=== PATIENT | male | born 1955 | race Hispanic/Latino ===

== ENCOUNTER 2021-10-24 16:10 | Inpatient (IN) | payer BC, MEDICARE ==
[2021-10-24] MEDS ORDERED: cefTRIAXone/NS 2 GM/100 ML 2 GM/100 ML BAG IV ONE (16:50)
[2021-10-24] MEDS ORDERED: SODIUM CHLORIDE 0.9% 1000 ML IV SOLN IV ONE (16:50)
--- NOTE | 2021-10-24 17:27 | XRay Report ---
XR chest 1V ap INDICATION / CLINICAL INFORMATION: weakness COMPARISON: None available. FINDINGS: SUPPORT DEVICES: None. HEART / MEDIASTINUM: No significant abnormality. LUNGS / PLEURA: Left basilar opacities. Costophrenic sulci are sharp. No pneumothorax. ADDITIONAL FINDINGS: Age-indeterminate posterior ninth rib fractures. No significant additional findi ngs. IMPRESSION: 1. Age-indeterminate posterior ninth rib fracture which is not well-visualized. Correlate with histor y and exam. Left basilar opacities favored to be atelectasis and/or scarring. Although airspace disea se could have a similar appearance. Signer Name: Aidan Dewitt MD Signed: 10/24/2021 5:22 PM Workstation Name: [id number]
--- NOTE | 2021-10-24 17:50 | XRay Report ---
Right foot 3 views INDICATION: Right foot pain FINDINGS: Bony destructive changes are seen within the distal aspect of the great toe with diffuse so ft tissue abnormality is well. There is irregularity in the distal aspect of the third toe. Subluxati on at the MTP joints throughout. Diffuse soft tissue swelling throughout the foot. IMPRESSION: 1. Bony destructive change within the distal aspect of the great toe suggesting osteomyelitis with [place] destructive change. There is also bone marrow irregularity in the distal third toe. MRI could be p erformed for further evaluation if indicated. Signer Name: Ole Hansen MD Signed: 10/24/2021 5:46 PM Workstation Name: [id number]
[2021-10-24 19:13] LABS: Hemoglobin 13.5 gm/dl (11.8-15.2); Mean Corpuscular HGB Conc 34 % (32-34); Mean Corpuscular Volume 91 fl (84-94); Platelet Count 276 K/mm3 (140-440); Red Blood Count 4.42 M/mm3 (3.65-5.03); Red Cell Distribution Width 12.6 % (13.2-15.2)
[2021-10-24] MEDS ORDERED: PIPERACILLIN/TAZOBACTAM 3.375 3.375 GM/50 ML BAG IV ONE (19:25)
[2021-10-24] MEDS ORDERED: VANCOMYCIN PHARMACY TO DOSE IV SCH (20:00)
[2021-10-24] MEDS: INSULIN GLARGINE 100 UNITS/ML SUB-Q SCH (20:05)
[2021-10-24] MEDS ORDERED: VANCOMYCIN 1,750 MG in SODIUM CHLORIDE 0.9% 500 ML 500 ML IV ONE (20:15)
[2021-10-24 21:59] LABS: Albumin 2.8 g/dL (3.9-5); Calcium 9.4 mg/dL (8.4-10.2)
[2021-10-24] MEDS: INSULIN LISPRO 100 UNIT/ML SUB-Q SCH (22:15)
[2021-10-24 22:40] LABS: Band Neutrophils # (Manual) 1.2 K/mm3; Basophils % (Manual) 0 % (0.0-1.8); Eosinophils % (Manual) 0 % (0.0-4.3); Myelocytes # (Manual) 0.2 K/mm3; Total Cells Counted 100
[2021-10-24 22:41] LABS: Platelet Estimate Consistent w Auto; RBC Morphology Normal
[2021-10-24] MEDS ORDERED: INSULIN REGULAR, HUMAN 100 UNITS/1 ML IV ONE (23:00)
--- NOTE | 2021-10-24 23:03 | Emergency Department Report ---
ED General Adult HPI - General Chief complaint: Fever Stated complaint: POSS WOUND INFECTION/RT TOE PUI?: No Time Seen by Provider: 10/24/21 16:50 Source: EMS Mode of arrival: Stretcher Limitations: Altered Mental Status, Physical Limitation - History of Present Illness Initial comments: ALTERED MENTAL STATUS, POSSIBLE TOE INFECTION ON RIGHT FOOT, HYPERGLYCEMIA , pt was covered in feces pt injruied his right foor few weeks ago and started getting infected -: Gradual, week(s) Location: lower extremity Radiation: non-radiation Severity scale (0 -10): 3 Quality: aching Consistency: constant Improves with: none - Related Data Allergies Allergy/AdvReac Type Severity Reaction Status Date / Time No Known Allergies Allergy Unverified 10/24/21 16:28 ED Review of Systems ROS: Stated complaint: POSS WOUND INFECTION/RT TOE Other details as noted in HPI Constitutional: denies: chills, fever Eyes: denies: eye pain, eye discharge, vision change ENT: denies: ear pain, throat pain Respiratory: denies: cough, shortness of breath, wheezing Cardiovascular: denies: chest pain, palpitations Endocrine: no symptoms reported Gastrointestinal: denies: abdominal pain, nausea, diarrhea Genitourinary: denies: urgency, dysuria Musculoskeletal: denies: back pain, joint swelling, arthralgia Skin: denies: rash, lesions Neurological: denies: headache, weakness, paresthesias Psychiatric: denies: anxiety, depression Hematological/Lymphatic: denies: easy bleeding, easy bruising ED Past Medical Hx - Past Medical History Hx Hypertension: Yes Hx Diabetes: Yes - Social History Smoking Status: Unknown if ever smoked ED Physical Exam - General Limitations: Altered Mental Status, Physical Limitation General appearance: alert - Head Head exam: Present: atraumatic, normocephalic - Eye Eye exam: Present: normal appearance - ENT ENT exam: Present: mucous membranes moist - Neck Neck exam: Present: normal inspection - Respiratory Respiratory exam: Present: normal lung sounds bilaterally. Absent: respiratory distress - Cardiovascular Cardiovascular Exam: Present: regular rate, normal rhythm. Absent: systolic murmur, diastolic murmur, rubs, gallop - GI/Abdominal GI/Abdominal exam: Present: soft, normal bowel sounds - Rectal Rectal exam: Present: deferred - Extremities Exam Extremities exam: Present: normal inspection - Expanded Lower Extremity Exam Right Foot/Toe exam: Present: tenderness, swelling, ecchymosis, erythema - Back Exam Back exam: Present: normal inspection - Neurological Exam Neurological exam: Present: alert, oriented X3 - Psychiatric Psychiatric exam: Present: normal affect, normal mood - Skin Skin exam: Present: warm, dry, intact, normal color. Absent: rash ED Course Vital Signs 10/24/21 10/24/21 16:24 18:21 Temperature 98.2 F Pulse Rate 110 H Respiratory 18 Rate Blood Pressure 153/76 [Right] O2 Sat by Pulse 98 97 Oximetry ED Medical Decision Making - Lab Data Result diagrams: 10/24/21 17:17 10/24/21 21:03 - Radiology Data Radiology results: report reviewed, image reviewed - Medical Decision Making sepsis work up showed elevated wbc 20 lactric acid , x ray showed osteo abx given cultures Critical care attestation.: If time is entered above; I have spent that time in minutes in the direct care of this critically ill patient, excluding procedure time. ED Disposition Clinical Impression: Hyperglycemia, Osteomyelitis of foot, right, acute, Sepsis Disposition: ADMITTED INPATIENT Is pt being admited?: Yes Does the pt Need Aspirin: No Condition: Stable
[2021-10-25] MEDS ORDERED: ONDANSETRON 4 MG/2 ML INJ IV PRN (00:19)
[2021-10-25] MEDS ORDERED: DEXTROSE 50% IN WATER (25GM) 50 ML SYRINGE IV PRN (00:19)
[2021-10-25] MEDS ORDERED: MAGNESIUM HYDROXIDE (MOM) ORAL LIQD UDC PO PRN (00:19)
[2021-10-25] MEDS ORDERED: MORPHINE 4 MG/1 ML INJ IV PRN (00:19)
[2021-10-25] MEDS ORDERED: MORPHINE 2 MG/1 ML INJ IV PRN (00:19)
--- NOTE | 2021-10-25 00:33 | History and Physical Report ---
History of Present Illness Date of examination: 10/25/21 Date of admission: 10/25/2021 Chief complaint: Right big toe wound Fever History of present illness: 66-year-old male with known history of hypertension and diabetes mellitus presenting to the emergency room today for evaluation of possible infected toe and elevated blood glucose. Patient states he had an injury to the right big toe few weeks ago which started to look infected. He has not seek any medical intervention. He however indicates that he has an upcoming appointment with his podiatristDr. Ireland Patient was said to have been found in feces at home today. He denies any fever or chills, no chest pain or shortness of breath, no nausea vomiting and no abdominal pain. Patient indicates his blood sugar has been elevated at home. Work-up in the emergency room today, labs significant for leukocytosis of 24 sodium 132, BUN of 28 and creatinine 1.6. Glucose was 495. Chest x-ray shows age-indeterminate posterior ninth rib fracture basilar opacities favored to be atelectasis scarring. Although airspace disease may have similar appearance. X-ray of the right foot reveals bony destructive changes within the distal aspect of the great toe suggesting osteomyelitis. There is also bone marrow irregularity in the distal third toe. MRI is recommended for further evaluation if indicated. Patient has been started on empiric IV antibiotics. Past History Past Medical History: diabetes, hypertension Past Surgical History: Other (Partial amputation of left middle toe) Social history: no significant social history Medications and Allergies Allergies Allergy/AdvReac Type Severity Reaction Status Date / Time No Known Allergies Allergy Unverified 10/24/21 16:28 Review of Systems Constitutional: fever, no chills Ears, nose, mouth and throat: no nasal congestion, no sore throat Cardiovascular: no chest pain, no palpitations Respiratory: no cough, no shortness of breath Gastrointestinal: no abdominal pain, no nausea, no vomiting, no diarrhea Genitourinary Male: no dysuria, no hematuria, no flank pain Musculoskeletal: no neck pain, no low back pain Integumentary: no rash, no pruritis Neurological: no headaches, no confusion Psychiatric: no anxiety, no depression Endocrine: no polyphagia, no polydipsia, no polyuria, no nocturia Exam - Constitutional Vitals: Temp Pulse Resp BP Pulse Ox 98.2 F 110 H 18 153/76 97 10/24/21 16:24 10/24/21 16:24 10/24/21 16:24 10/24/21 16:24 10/24/21 18:21 General appearance: Present: no acute distress, well-nourished - EENT Eyes: Present: PERRL, EOM intact. Absent: scleral icterus ENT: hearing intact, clear oral mucosa, dentition normal - Neck Neck: Present: supple, normal ROM - Respiratory Respiratory effort: normal Respiratory: bilateral: CTA - Cardiovascular Rhythm: regular Heart Sounds: Present: S1 & S2. Absent: gallop, systolic murmur, diastolic murmur, rub, click - Extremities Extremities: no ischemia, pulses intact, pulses symmetrical, No edema, normal temperature, Full ROM Extremity abnormal: ulceration (Open wound with surrounding redness on right big toe,), deformity (Deformed right big toe), tenderness (Minimal tenderness on the right foot) Peripheral Pulses: within normal limits - Abdominal General gastrointestinal: Present: soft, non-tender, non-distended, normal bowel sounds. Absent: mass - Integumentary Integumentary: Present: clear, warm, dry, normal turgor. Absent: rash - Musculoskeletal Musculoskeletal: strength equal bilaterally - Psychiatric Psychiatric: appropriate mood/affect, intact judgment & insight, memory intact, cooperative - Neurologic Neurologic: CNII-XII intact, no focal deficits, moves all extremities HEART Score - HEART Score Troponin: Troponin T < 0.010 ng/mL (0.00-0.029) 10/24/21 17:17 Results - Labs CBC & Chem 7: 10/24/21 17:17 10/24/21 21:03 Labs: Abnormal lab results 10/24/21 10/24/21 10/24/21 Range/Units 17:17 17:17 21:03 WBC 20.5 H (4.5-11.0) K/mm3 RDW 12.6 L (13.2-15.2) % Seg Neuts % (Manual) 82.0 H (40.0-70.0) % Lymphocytes % (Manual) 5.0 L (13.4-35.0) % Seg Neutrophils # Man 16.8 H (1.8-7.7) K/mm3 Lymphocytes # (Manual) 1.0 L (1.2-5.4) K/mm3 Monocytes # (Manual) 1.2 H (0.0-0.8) K/mm3 Sodium 132 L (137-145) mmol/L Chloride 97.1 L (98-107) mmol/L Carbon Dioxide 21 L (22-30) mmol/L BUN 28 H (9-20) mg/dL Creatinine 1.6 H (0.8-1.3) mg/dL Glucose 495 H (75-100) mg/dL POC Glucose (70-105) mg/dL Lactic Acid 3.00 H* (0.7-2.0) mmol/L Albumin 2.8 L (3.9-5) g/dL 10/24/21 Range/Units 23:28 WBC (4.5-11.0) K/mm3 RDW (13.2-15.2) % Seg Neuts % (Manual) (40.0-70.0) % Lymphocytes % (Manual) (13.4-35.0) % Seg Neutrophils # Man (1.8-7.7) K/mm3 Lymphocytes # (Manual) (1.2-5.4) K/mm3 Monocytes # (Manual) (0.0-0.8) K/mm3 Sodium (137-145) mmol/L Chloride (98-107) mmol/L Carbon Dioxide (22-30) mmol/L BUN (9-20) mg/dL Creatinine (0.8-1.3) mg/dL Glucose (75-100) mg/dL POC Glucose 435 H (70-105) mg/dL Lactic Acid (0.7-2.0) mmol/L Albumin (3.9-5) g/dL Assessment and Plan Assessment: 1. Right big toe cellulitis/osteomyelitis 2. Hyperglycemia 3. Leukocytosis Plan: 1.Patient admitted and placed on empiric IV antibiotics. 2. Started on IV fluid and analgesic medication. 3.Consult Vascular surgery, ID and Podiatry for evaluation 4.Placed on sliding sclae insulin . Monitor blood glucose. DVT prophylaxis: Subcutaneous heparin CODE STATUS: Full code
[2021-10-25] MEDS: INSULIN LISPRO 100 UNIT/ML SUB-Q SCH ×2 (09:20→17:00)
[2021-10-25 10:18] LABS: BUN/Creatinine Ratio 22; Blood Urea Nitrogen 26 mg/dL (9-20); Calcium 9.2 mg/dL (8.4-10.2); Hemolysis Index 2
[2021-10-25] MEDS ORDERED: VANCOMYCIN 1,250 MG in SODIUM CHLORIDE 0.9% 250ML 250 ML IV SCH (12:00)
[2021-10-25] MEDS: VANCOMYCIN 1,250 MG in SODIUM CHLORIDE 0.9% 250ML 250 ML IV SCH (17:00)
[2021-10-25 17:03] LABS: Bilirubin,Urine NEG (Negative); Blood,Urine MOD (Negative); Color,Urine Yellow (Yellow); Urobilinogen,Urine < 2.0 mg/dL (<2.0)
[2021-10-25 17:08] LABS: Mucus,Urine FEW /HPF
[2021-10-25] MEDS: AMPICILLIN/SULBACTA 3GM/100ML 3 GM/100 ML BAG IV SCH (19:15)
[2021-10-26] MEDS: AMPICILLIN/SULBACTA 3GM/100ML 3 GM/100 ML BAG IV SCH ×3 (04:51→18:00)
[2021-10-26 05:31] LABS: Basophils % (Auto) 0.3 % (0.0-1.8); Eosinophils # (Auto) 0.1 K/mm3 (0.0-0.4); Eosinophils % (Auto) 1.3 % (0.0-4.3); Hematocrit 34.7 % (35.5-45.6); Hemoglobin 11.6 gm/dl (11.8-15.2); Lymphocytes # (Auto) 1.3 K/mm3 (1.2-5.4); Lymphocytes % (Auto) 11.8 % (13.4-35.0); Mean Corpuscular HGB Conc 34 % (32-34); Mean Corpuscular Volume 90 fl (84-94); Monocytes # (Auto) 1.3 K/mm3 (0.0-0.8); Monocytes % (Auto) 11.8 % (0.0-7.3); Platelet Count 217 K/mm3 (140-440); Red Blood Count 3.86 M/mm3 (3.65-5.03); Red Cell Distribution Width 12.6 % (13.2-15.2)
[2021-10-26 05:44] LABS: Alanine Aminotransferase 70 units/L (7-56); Albumin 2.7 g/dL (3.9-5); BUN/Creatinine Ratio 19; Blood Urea Nitrogen 19 mg/dL (9-20); Calcium 9.2 mg/dL (8.4-10.2); Hemolysis Index 2
[2021-10-26] MEDS: SODIUM CHLORIDE 0.9% 1000 ML 1,000 ML IV SCH (08:42)
--- NOTE | 2021-10-26 08:58 | Event Note ---
Date: 10/25/21 Patient seen and evaluated Sepsis Uncontrolled diabetes Patient started on Unasyn and vancomycin Lantus added for nighttime insulin for better control of glucose levels
[2021-10-26] MEDS: INSULIN LISPRO 100 UNIT/ML SUB-Q SCH ×5 (09:49→22:10)
--- NOTE | 2021-10-26 11:05 | Progress Note ---
Assessment and Plan Assessment and plan: 66-year-old male with known history of hypertension and diabetes mellitus presenting to the emergency room today for evaluation of possible infected toe and elevated blood glucose. Patient states he had an injury to the right big toe few weeks ago which started to look infected. He has an upcoming minerva ointment with his podiatristDr. Ireland. Patient was said to have been found in feces at home today. Patient indicated his blood sugar has been elevated at home. Work-up in the emergency room revealed leukocytosis of 24 sodium 132, BUN of 28 and creatinine 1.6. Glucose was 495. Chest x-ray shows age-indeterminate posterior ninth rib fracture basilar opacities favored to be atelectasis scarring. Although airspace disease may have similar appearance. X-ray of the right foot reveals bony destructive changes within the distal aspect of the great toe suggesting osteomyelitis. There is also bone marrow irregularity in the distal third toe. Sepsis. Patient meets criteria given the tachycardia, leukocytosis and diagnosis of osteomyelitis. Right big toe osteomyelitis/cellulitis. Diabetes mellitus type 2, uncontrolled Leukocytosis Hypertension. 10/26/2021. Check MRI of right foot. Await ID consultation. Follow-up blood cultures. Continue IV antibiotics. Continue SSRI and Accu-Cheks. Continue Lantus at bedtime. Check sed rate. History Interval history: No new issues Hospitalist Physical - Constitutional Vitals: Temp Pulse Resp BP Pulse Ox 99.0 F 84 16 121/83 98 10/25/21 20:55 10/26/21 07:57 10/26/21 07:57 10/26/21 07:57 10/26/21 07:57 General appearance: Present: no acute distress, well-nourished - EENT Eyes: Present: PERRL, EOM intact ENT: hearing intact, clear oral mucosa, dentition normal - Neck Neck: Present: supple, normal ROM - Respiratory Respiratory effort: normal Respiratory: bilateral: CTA - Cardiovascular Rhythm: regular Heart Sounds: Present: S1 & S2. Absent: gallop, rub - Extremities Extremities: no ischemia, No edema, Full ROM - Abdominal General gastrointestinal: soft, non-tender, non-distended, normal bowel sounds - Integumentary Integumentary: Present: clear, warm, dry - Neurologic Neurologic: CNII-XII intact, moves all extremities HEART Score - HEART Score Troponin: Troponin T < 0.010 ng/mL (0.00-0.029) 10/24/21 17:17 Results - Labs CBC & Chem 7: 10/26/21 04:50 10/26/21 04:50 Labs: Laboratory Last Values WBC 11.3 K/mm3 (4.5-11.0) H 10/26/21 04:50 RBC 3.86 M/mm3 (3.65-5.03) 10/26/21 04:50 Hgb 11.6 gm/dl (11.8-15.2) L 10/26/21 04:50 Hct 34.7 % (35.5-45.6) L 10/26/21 04:50 MCV 90 fl (84-94) 10/26/21 04:50 MCH 30 pg (28-32) 10/26/21 04:50 MCHC 34 % (32-34) 10/26/21 04:50 RDW 12.6 % (13.2-15.2) L 10/26/21 04:50 Plt Count 217 K/mm3 (140-440) 10/26/21 04:50 Lymph % (Auto) 11.8 % (13.4-35.0) L 10/26/21 04:50 [place] % (Auto) 11.8 % (0.0-7.3) H 10/26/21 04:50 Eos % (Auto) 1.3 % (0.0-4.3) 10/26/21 04:50 Baso % (Auto) 0.3 % (0.0-1.8) 10/26/21 04:50 Lymph # (Auto) 1.3 K/mm3 (1.2-5.4) 10/26/21 04:50 [place] # (Auto) 1.3 K/mm3 (0.0-0.8) H 10/26/21 04:50 Eos # (Auto) 0.1 K/mm3 (0.0-0.4) 10/26/21 04:50 Baso # (Auto) 0.0 K/mm3 (0.0-0.1) 10/26/21 04:50 Add Manual Diff Complete 10/24/21 17:17 Total Counted 100 10/24/21 17:17 Seg Neutrophils % 74.8 % (40.0-70.0) H 10/26/21 04:50 Seg Neuts % (Manual) 82.0 % (40.0-70.0) H 10/24/21 17:17 Band Neutrophils % 6.0 % 10/24/21 17:17 Lymphocytes % (Manual) 5.0 % (13.4-35.0) L 10/24/21 17:17 Reactive Lymphs % (Man) 0 % 10/24/21 17:17 Monocytes % (Manual) 6.0 % (0.0-7.3) 10/24/21 17:17 Eosinophils % (Manual) 0 % (0.0-4.3) 10/24/21 17:17 Basophils % (Manual) 0 % (0.0-1.8) 10/24/21 17:17 Metamyelocytes % 0 % 10/24/21 17:17 Myelocytes % 1.0 % 10/24/21 17:17 Promyelocytes % 0 % 10/24/21 17:17 Blast Cells % 0 % 10/24/21 17:17 Nucleated RBC % Not Reportable 10/24/21 17:17 Seg Neutrophils # 8.5 K/mm3 (1.8-7.7) H 10/26/21 04:50 Seg Neutrophils # Man 16.8 K/mm3 (1.8-7.7) H 10/24/21 17:17 Band Neutrophils # 1.2 K/mm3 10/24/21 17:17 Lymphocytes # (Manual) 1.0 K/mm3 (1.2-5.4) L 10/24/21 17:17 Abs React Lymphs (Man) 0.0 K/mm3 10/24/21 17:17 Monocytes # (Manual) 1.2 K/mm3 (0.0-0.8) H 10/24/21 17:17 Eosinophils # (Manual) 0.0 K/mm3 (0.0-0.4) 10/24/21 17:17 Basophils # (Manual) 0.0 K/mm3 (0.0-0.1) 10/24/21 17:17 Metamyelocytes # 0.0 K/mm3 10/24/21 17:17 Myelocytes # 0.2 K/mm3 10/24/21 17:17 Promyelocytes # 0.0 K/mm3 10/24/21 17:17 Blast Cells # 0.0 K/mm3 10/24/21 17:17 WBC Morphology Not Reportable 10/24/21 17:17 Hypersegmented Neuts Not Reportable 10/24/21 17:17 Hyposegmented Neuts Not Reportable 10/24/21 17:17 Hypogranular Neuts Not Reportable 10/24/21 17:17 Smudge Cells Not Reportable 10/24/21 17:17 Toxic Granulation Not Reportable 10/24/21 17:17 Toxic Vacuolation Not Reportable 10/24/21 17:17 Dohle Bodies Not Reportable 10/24/21 17:17 Pelger-Huet Anomaly Not Reportable 10/24/21 17:17 Edgardo Rods Not Reportable 10/24/21 17:17 Platelet Estimate Consistent w auto 10/24/21 17:17 Clumped Platelets Not Reportable 10/24/21 17:17 Plt Clumps, EDTA Not Reportable 10/24/21 17:17 Large Platelets Not Reportable 10/24/21 17:17 Giant Platelets Not Reportable 10/24/21 17:17 Platelet Satelliting Not Reportable 10/24/21 17:17 Plt Morphology Comment Not Reportable 10/24/21 17:17 RBC Morphology Normal 10/24/21 17:17 Dimorphic RBCs Not Reportable 10/24/21 17:17 Polychromasia Not Reportable 10/24/21 17:17 Hypochromasia Not Reportable 10/24/21 17:17 Poikilocytosis Not Reportable 10/24/21 17:17 Anisocytosis Not Reportable 10/24/21 17:17 Microcytosis Not Reportable 10/24/21 17:17 Macrocytosis Not Reportable 10/24/21 17:17 Spherocytes Not Reportable 10/24/21 17:17 Pappenheimer Bodies Not Reportable 10/24/21 17:17 Sickle Cells Not Reportable 10/24/21 17:17 Target Cells Not Reportable 10/24/21 17:17 Tear Drop Cells Not Reportable 10/24/21 17:17 Ovalocytes Not Reportable 10/24/21 17:17 Helmet Cells Not Reportable 10/24/21 17:17 [place] Bodies Not Reportable 10/24/21 17:17 [place] Rings Not Reportable 10/24/21 17:17 [place] Cells Not Reportable 10/24/21 17:17 Bite Cells Not Reportable 10/24/21 17:17 Crenated Cell Not Reportable 10/24/21 17:17 Elliptocytes Not Reportable 10/24/21 17:17 Acanthocytes (Spur) Not Reportable 10/24/21 17:17 Rouleaux Not Reportable 10/24/21 17:17 Hemoglobin C Crystals Not Reportable 10/24/21 17:17 Schistocytes Not Reportable 10/24/21 17:17 Malaria parasites Not Reportable 10/24/21 17:17 [place] Bodies Not Reportable 10/24/21 17:17 Hem Pathologist Commnt No 10/24/21 17:17 Sodium 133 mmol/L (137-145) L 10/26/21 04:50 Potassium 4.3 mmol/L (3.6-5.0) 10/26/21 04:50 Chloride 96.6 mmol/L (98-107) L 10/26/21 04:50 Carbon Dioxide 26 mmol/L (22-30) 10/26/21 04:50 Anion Gap 15 mmol/L 10/26/21 04:50 BUN 19 mg/dL (9-20) 10/26/21 04:50 Creatinine 1.0 mg/dL (0.8-1.3) 10/26/21 04:50 Estimated GFR > 60 ml/min 10/26/21 04:50 BUN/Creatinine Ratio 19 % 10/26/21 04:50 Glucose 338 mg/dL (75-100) H 10/26/21 04:50 POC Glucose 375 mg/dL (70-105) H 10/26/21 09:26 Lactic Acid 1.50 mmol/L (0.7-2.0) 10/24/21 21:03 Calcium 9.2 mg/dL (8.4-10.2) 10/26/21 04:50 Total Bilirubin 0.30 mg/dL (0.1-1.2) 10/26/21 04:50 AST 112 units/L (5-40) H 10/26/21 04:50 ALT 70 units/L (7-56) H 10/26/21 04:50 Alkaline Phosphatase 66 units/L (35-129) 10/26/21 04:50 Troponin T < 0.010 ng/mL (0.00-0.029) 10/24/21 17:17 Total Protein 6.1 g/dL (6.3-8.2) L 10/26/21 04:50 Albumin 2.7 g/dL (3.9-5) L 10/26/21 04:50 Albumin/Globulin Ratio 0.8 % 10/26/21 04:50 Urine Color Yellow (Yellow) 10/25/21 15:50 Urine Turbidity Slightly-cloudy (Clear) 10/25/21 15:50 Urine pH 5.0 (5.0-7.0) 10/25/21 15:50 Ur Specific [place] 1.021 (1.003-1.030) 10/25/21 15:50 Urine Protein 100 mg/dl mg/dL (Negative) 10/25/21 15:50 Urine Glucose (UA) >=500 mg/dL (Negative) 10/25/21 15:50 Urine Ketones Neg mg/dL (Negative) 10/25/21 15:50 Urine Blood Mod (Negative) 10/25/21 15:50 Urine Nitrite Neg (Negative) 10/25/21 15:50 Urine Bilirubin Neg (Negative) 10/25/21 15:50 Urine Urobilinogen < 2.0 mg/dL (<2.0) 10/25/21 15:50 Ur Leukocyte Esterase Neg (Negative) 10/25/21 15:50 Urine WBC (Auto) 3.0 /HPF (0.0-6.0) 10/25/21 15:50 Urine RBC (Auto) 3.0 /HPF (0.0-6.0) 10/25/21 15:50 U Epithel Cells (Auto) 1.0 /HPF (0-13.0) 10/25/21 15:50 Urine Mucus Few /HPF 10/25/21 15:50 Microbiology: Microbiology 10/24/21 17:17 Peripheral/Venous Blood Culture - Preliminary 10/24/21 17:17 Peripheral/Venous Blood Culture - Preliminary Active Medications - Current Medications Current Medications: Generic Name Dose Route Start Last Admin Trade Name Freq PRN Reason Stop Dose Admin Acetaminophen 650 mg 10/25/21 00:19 Acetaminophen 325 Mg Tab PO Q6H PRN Pain MILD(1-3)/Fever >100.5/ANDRE Dextrose 0 ml 10/25/21 00:19 Dextrose 50% In Water (25gm) 50 Ml Syringe IV Q30MIN PRN Hypoglycemia Protocol Sodium Chloride 1,000 mls @ 150 mls/hr 10/25/21 00:30 10/26/21 08:42 Nacl 0.9% 1000 Ml IV 150 mls/hr DIRECT IAM Administration Vancomycin HCl 1,250 mg/ 275 mls @ 166.667 mls/hr 10/25/21 16:00 10/25/21 17:00 Sodium Chloride IV 166.667 mls/hr Q18H IAM Administration Ampicillin Sodium/Sulbactam Sodium 3 gm in 100 mls @ 100 mls/hr 10/25/21 18:00 10/26/21 04:51 Unasyn/Ns 3 Gm/100 Ml IV 100 mls/hr Q6HR IAM Administration Protocol Insulin Glargine 20 units 10/25/21 20:00 10/24/21 20:05 Insulin Glargine 100 Units/Ml SUB-Q Not Given QHS [facility] Insulin Human Lispro 0 unit 10/25/21 07:30 10/26/21 09:49 Insulin Lispro 100 Unit/Ml SUB-Q 10 unit ACHS IAM Administration Protocol Magnesium Hydroxide 30 ml 10/25/21 00:19 Magnesium Hydroxide (Mom) Oral Liqd Udc PO Q4H PRN Constipation Morphine Sulfate 2 mg 10/25/21 00:19 Morphine 2 Mg/1 Ml Inj IV Q4H PRN Pain, Moderate (4-6) Morphine Sulfate 4 mg 10/25/21 00:19 Morphine 4 Mg/1 Ml Inj IV Q4H PRN Pain , Severe (7-10) Ondansetron HCl 4 mg 10/25/21 00:19 Ondansetron 4 Mg/2 Ml Inj IV Q8H PRN Nausea And Vomiting Sodium Chloride 10 ml 10/25/21 10:00 10/26/21 08:43 Sodium Chloride 0.9% 10 Ml Flush Syringe IV 10 ml BID IAM Administration Sodium Chloride 10 ml 10/25/21 00:19 Sodium Chloride 0.9% 10 Ml Flush Syringe IV PRN PRN LINE FLUSH Nutrition/Malnutrition Assess - Dietary Evaluation Nutrition/Malnutrition Findings: Nutrition Notes Start: 10/25/21 08:28 Freq: Status: Active Protocol: Document 10/25/21 08:28 BHAVYA (Rec: 10/25/21 08:31 BHAVYA [id number]) Nutrition Notes Need for Assessment generated from: MD Order,Education Initial or Follow up Brief Note Other Pertinent Diagnosis (R) great toe wound, hyperglycemia Current Diet Cardiac/Consistent CHO Weight Status Appropriate Subjective/Other Information RD consulted for diet education; pt in ED at this time. Nutrition Intervention Follow-Up By: 10/30/21 Additional Comments F/U: diet education needs
[2021-10-26] MEDS: VANCOMYCIN 1,250 MG in SODIUM CHLORIDE 0.9% 250ML 250 ML IV SCH (13:41)
[2021-10-26] MEDS: INSULIN GLARGINE 100 UNITS/ML SUB-Q SCH ×2 (22:03→22:15)
[2021-10-27] MEDS: AMPICILLIN/SULBACTA 3GM/100ML 3 GM/100 ML BAG IV SCH ×6 (00:08→18:55)
[2021-10-27] MEDS: SODIUM CHLORIDE 0.9% 1000 ML 1,000 ML IV SCH (02:09)
[2021-10-27] MEDS: VANCOMYCIN 1,250 MG in SODIUM CHLORIDE 0.9% 250ML 250 ML IV SCH (03:14)
[2021-10-27 05:04] LABS: Basophils % (Auto) 0.5 % (0.0-1.8); Eosinophils # (Auto) 0.1 K/mm3 (0.0-0.4); Eosinophils % (Auto) 1.7 % (0.0-4.3); Hematocrit 33.5 % (35.5-45.6); Hemoglobin 11.5 gm/dl (11.8-15.2); Lymphocytes # (Auto) 1.4 K/mm3 (1.2-5.4); Lymphocytes % (Auto) 15.7 % (13.4-35.0); Mean Corpuscular HGB Conc 34 % (32-34); Mean Corpuscular Volume 89 fl (84-94); Monocytes % (Auto) 11.4 % (0.0-7.3); Platelet Count 230 K/mm3 (140-440); Red Blood Count 3.78 M/mm3 (3.65-5.03); Red Cell Distribution Width 12.4 % (13.2-15.2)
[2021-10-27 05:22] LABS: BUN/Creatinine Ratio 15; Blood Urea Nitrogen 12 mg/dL (9-20); Calcium 9.1 mg/dL (8.4-10.2); Hemolysis Index 1
[2021-10-27] MEDS: INSULIN LISPRO 100 UNIT/ML SUB-Q SCH ×4 (08:04→22:15)
--- NOTE | 2021-10-27 09:45 | Progress Note ---
Assessment and Plan Assessment and plan: 66-year-old male with known history of hypertension and diabetes mellitus presenting to the emergency room today for evaluation of possible infected toe and elevated blood glucose. Patient states he had an injury to the right big toe few weeks ago which started to look infected. He has an upcoming minerva ointment with his podiatristDr. Ireland. Patient was said to have been found in feces at home today. Patient indicated his blood sugar has been elevated at home. Work-up in the emergency room revealed leukocytosis of 24 sodium 132, BUN of 28 and creatinine 1.6. Glucose was 495. Chest x-ray shows age-indeterminate posterior ninth rib fracture basilar opacities favored to be atelectasis scarring. Although airspace disease may have similar appearance. X-ray of the right foot reveals bony destructive changes within the distal aspect of the great toe suggesting osteomyelitis. There is also bone marrow irregularity in the distal third toe. Sepsis. Patient meets criteria given the tachycardia, leukocytosis and diagnosis of osteomyelitis. Right big toe osteomyelitis/cellulitis. Diabetes mellitus type 2, uncontrolled Leukocytosis Hypertension. 10/26/2021. Check MRI of right foot. Await ID consultation. Follow-up blood cultures. Continue IV antibiotics. Continue SSRI and Accu-Cheks. Continue Lantus at bedtime. Check sed rate. 10/27/2021. Follow-up MRI of the right foot. ID consultation pending. Continue IV antibiotics. Tight glycemic control to promote healing. BG still remains elevated. Increase Lantus insulin. Follow-up sed rate History Interval history: No new issues Hospitalist Physical - Constitutional Vitals: Temp Pulse Resp BP Pulse Ox 97.9 F 70 17 144/81 98 10/27/21 05:40 10/27/21 05:40 10/27/21 05:40 10/27/21 05:40 10/27/21 05:40 General appearance: Present: no acute distress, well-nourished - EENT Eyes: Present: PERRL, EOM intact ENT: hearing intact, clear oral mucosa, dentition normal - Neck Neck: Present: supple, normal ROM - Respiratory Respiratory effort: normal Respiratory: bilateral: CTA - Cardiovascular Rhythm: regular Heart Sounds: Present: S1 & S2. Absent: gallop, rub - Extremities Extremities: no ischemia, No edema, Full ROM - Abdominal General gastrointestinal: soft, non-tender, non-distended, normal bowel sounds - Integumentary Integumentary: Present: clear, warm, dry - Neurologic Neurologic: CNII-XII intact, moves all extremities HEART Score - HEART Score Troponin: Troponin T < 0.010 ng/mL (0.00-0.029) 10/24/21 17:17 Results - Labs CBC & Chem 7: 10/27/21 04:37 10/27/21 04:37 Labs: Laboratory Last Values WBC 8.6 K/mm3 (4.5-11.0) 10/27/21 04:37 RBC 3.78 M/mm3 (3.65-5.03) 10/27/21 04:37 Hgb 11.5 gm/dl (11.8-15.2) L 10/27/21 04:37 Hct 33.5 % (35.5-45.6) L 10/27/21 04:37 MCV 89 fl (84-94) 10/27/21 04:37 MCH 31 pg (28-32) 10/27/21 04:37 MCHC 34 % (32-34) 10/27/21 04:37 RDW 12.4 % (13.2-15.2) L 10/27/21 04:37 Plt Count 230 K/mm3 (140-440) 10/27/21 04:37 Lymph % (Auto) 15.7 % (13.4-35.0) 10/27/21 04:37 [place] % (Auto) 11.4 % (0.0-7.3) H 10/27/21 04:37 Eos % (Auto) 1.7 % (0.0-4.3) 10/27/21 04:37 Baso % (Auto) 0.5 % (0.0-1.8) 10/27/21 04:37 Lymph # (Auto) 1.4 K/mm3 (1.2-5.4) 10/27/21 04:37 [place] # (Auto) 1.0 K/mm3 (0.0-0.8) H 10/27/21 04:37 Eos # (Auto) 0.1 K/mm3 (0.0-0.4) 10/27/21 04:37 Baso # (Auto) 0.0 K/mm3 (0.0-0.1) 10/27/21 04:37 Add Manual Diff Complete 10/24/21 17:17 Total Counted 100 10/24/21 17:17 Seg Neutrophils % 70.7 % (40.0-70.0) H 10/27/21 04:37 Seg Neuts % (Manual) 82.0 % (40.0-70.0) H 10/24/21 17:17 Band Neutrophils % 6.0 % 10/24/21 17:17 Lymphocytes % (Manual) 5.0 % (13.4-35.0) L 10/24/21 17:17 Reactive Lymphs % (Man) 0 % 10/24/21 17:17 Monocytes % (Manual) 6.0 % (0.0-7.3) 10/24/21 17:17 Eosinophils % (Manual) 0 % (0.0-4.3) 10/24/21 17:17 Basophils % (Manual) 0 % (0.0-1.8) 10/24/21 17:17 Metamyelocytes % 0 % 10/24/21 17:17 Myelocytes % 1.0 % 10/24/21 17:17 Promyelocytes % 0 % 10/24/21 17:17 Blast Cells % 0 % 10/24/21 17:17 Nucleated RBC % Not Reportable 10/24/21 17:17 Seg Neutrophils # 6.1 K/mm3 (1.8-7.7) 10/27/21 04:37 Seg Neutrophils # Man 16.8 K/mm3 (1.8-7.7) H 10/24/21 17:17 Band Neutrophils # 1.2 K/mm3 10/24/21 17:17 Lymphocytes # (Manual) 1.0 K/mm3 (1.2-5.4) L 10/24/21 17:17 Abs React Lymphs (Man) 0.0 K/mm3 10/24/21 17:17 Monocytes # (Manual) 1.2 K/mm3 (0.0-0.8) H 10/24/21 17:17 Eosinophils # (Manual) 0.0 K/mm3 (0.0-0.4) 10/24/21 17:17 Basophils # (Manual) 0.0 K/mm3 (0.0-0.1) 10/24/21 17:17 Metamyelocytes # 0.0 K/mm3 10/24/21 17:17 Myelocytes # 0.2 K/mm3 10/24/21 17:17 Promyelocytes # 0.0 K/mm3 10/24/21 17:17 Blast Cells # 0.0 K/mm3 10/24/21 17:17 WBC Morphology Not Reportable 10/24/21 17:17 Hypersegmented Neuts Not Reportable 10/24/21 17:17 Hyposegmented Neuts Not Reportable 10/24/21 17:17 Hypogranular Neuts Not Reportable 10/24/21 17:17 Smudge Cells Not Reportable 10/24/21 17:17 Toxic Granulation Not Reportable 10/24/21 17:17 Toxic Vacuolation Not Reportable 10/24/21 17:17 Dohle Bodies Not Reportable 10/24/21 17:17 Pelger-Huet Anomaly Not Reportable 10/24/21 17:17 Edgardo Rods Not Reportable 10/24/21 17:17 Platelet Estimate Consistent w auto 10/24/21 17:17 Clumped Platelets Not Reportable 10/24/21 17:17 Plt Clumps, EDTA Not Reportable 10/24/21 17:17 Large Platelets Not Reportable 10/24/21 17:17 Giant Platelets Not Reportable 10/24/21 17:17 Platelet Satelliting Not Reportable 10/24/21 17:17 Plt Morphology Comment Not Reportable 10/24/21 17:17 RBC Morphology Normal 10/24/21 17:17 Dimorphic RBCs Not Reportable 10/24/21 17:17 Polychromasia Not Reportable 10/24/21 17:17 Hypochromasia Not Reportable 10/24/21 17:17 Poikilocytosis Not Reportable 10/24/21 17:17 Anisocytosis Not Reportable 10/24/21 17:17 Microcytosis Not Reportable 10/24/21 17:17 Macrocytosis Not Reportable 10/24/21 17:17 Spherocytes Not Reportable 10/24/21 17:17 Pappenheimer Bodies Not Reportable 10/24/21 17:17 Sickle Cells Not Reportable 10/24/21 17:17 Target Cells Not Reportable 10/24/21 17:17 Tear Drop Cells Not Reportable 10/24/21 17:17 Ovalocytes Not Reportable 10/24/21 17:17 Helmet Cells Not Reportable 10/24/21 17:17 [place] Bodies Not Reportable 10/24/21 17:17 Blanco Rings Not Reportable 10/24/21 17:17 [place] Cells Not Reportable 10/24/21 17:17 Bite Cells Not Reportable 10/24/21 17:17 Crenated Cell Not Reportable 10/24/21 17:17 Elliptocytes Not Reportable 10/24/21 17:17 Acanthocytes (Spur) Not Reportable 10/24/21 17:17 Rouleaux Not Reportable 10/24/21 17:17 Hemoglobin C Crystals Not Reportable 10/24/21 17:17 Schistocytes Not Reportable 10/24/21 17:17 Malaria parasites Not Reportable 10/24/21 17:17 ESR 56 mm/Hr (0-20) 10/26/21 04:50 [place] Bodies Not Reportable 10/24/21 17:17 Hem Pathologist Commnt No 10/24/21 17:17 Sodium 139 mmol/L (137-145) 10/27/21 04:37 Potassium 4.2 mmol/L (3.6-5.0) 10/27/21 04:37 Chloride 104.6 mmol/L (98-107) 10/27/21 04:37 Carbon Dioxide 26 mmol/L (22-30) 10/27/21 04:37 Anion Gap 13 mmol/L 10/27/21 04:37 BUN 12 mg/dL (9-20) 10/27/21 04:37 Creatinine 0.8 mg/dL (0.8-1.3) 10/27/21 04:37 Estimated GFR > 60 ml/min 10/27/21 04:37 BUN/Creatinine Ratio 15 % 10/27/21 04:37 Glucose 208 mg/dL (75-100) H 10/27/21 04:37 POC Glucose 183 mg/dL (70-105) H 10/27/21 07:46 Lactic Acid 1.50 mmol/L (0.7-2.0) 10/24/21 21:03 Calcium 9.1 mg/dL (8.4-10.2) 10/27/21 04:37 Total Bilirubin 0.30 mg/dL (0.1-1.2) 10/26/21 04:50 AST 112 units/L (5-40) H 10/26/21 04:50 ALT 70 units/L (7-56) H 10/26/21 04:50 Alkaline Phosphatase 66 units/L (35-129) 10/26/21 04:50 Troponin T < 0.010 ng/mL (0.00-0.029) 10/24/21 17:17 Total Protein 6.1 g/dL (6.3-8.2) L 10/26/21 04:50 Albumin 2.7 g/dL (3.9-5) L 10/26/21 04:50 Albumin/Globulin Ratio 0.8 % 10/26/21 04:50 Urine Color Yellow (Yellow) 10/25/21 15:50 Urine Turbidity Slightly-cloudy (Clear) 10/25/21 15:50 Urine pH 5.0 (5.0-7.0) 10/25/21 15:50 Ur Specific [place] 1.021 (1.003-1.030) 10/25/21 15:50 Urine Protein 100 mg/dl mg/dL (Negative) 10/25/21 15:50 Urine Glucose (UA) >=500 mg/dL (Negative) 10/25/21 15:50 Urine Ketones Neg mg/dL (Negative) 10/25/21 15:50 Urine Blood Mod (Negative) 10/25/21 15:50 Urine Nitrite Neg (Negative) 10/25/21 15:50 Urine Bilirubin Neg (Negative) 10/25/21 15:50 Urine Urobilinogen < 2.0 mg/dL (<2.0) 10/25/21 15:50 Ur Leukocyte Esterase Neg (Negative) 10/25/21 15:50 Urine WBC (Auto) 3.0 /HPF (0.0-6.0) 10/25/21 15:50 Urine RBC (Auto) 3.0 /HPF (0.0-6.0) 10/25/21 15:50 U Epithel Cells (Auto) 1.0 /HPF (0-13.0) 10/25/21 15:50 Urine Mucus Few /HPF 10/25/21 15:50 Gonzalez/IV: Voiding Method Urinal Active Medications - Current Medications Current Medications: Generic Name Dose Route Start Last Admin Trade Name Freq PRN Reason Stop Dose Admin Acetaminophen 650 mg 10/25/21 00:19 Acetaminophen 325 Mg Tab PO Q6H PRN Pain MILD(1-3)/Fever >100.5/ANDRE Dextrose 0 ml 10/25/21 00:19 Dextrose 50% In Water (25gm) 50 Ml Syringe IV Q30MIN PRN Hypoglycemia Protocol Sodium Chloride 1,000 mls @ 150 mls/hr 10/25/21 00:30 10/27/21 02:09 Nacl 0.9% 1000 Ml IV 150 mls/hr DIRECT IAM Administration Vancomycin HCl 1,250 mg/ 275 mls @ 166.667 mls/hr 10/25/21 16:00 10/27/21 03:14 Sodium Chloride IV 166.667 mls/hr Q18H IAM Administration Ampicillin Sodium/Sulbactam Sodium 3 gm in 100 mls @ 100 mls/hr 10/25/21 18:00 10/27/21 00:10 Unasyn/Ns 3 Gm/100 Ml IV 100 mls/hr Q6HR IAM Administration Protocol Insulin Glargine 20 units 10/25/21 20:00 10/26/21 22:15 Insulin Glargine 100 Units/Ml SUB-Q 20 units QHS IAM Administration Insulin Human Lispro 0 unit 10/25/21 07:30 10/26/21 22:10 Insulin Lispro 100 Unit/Ml SUB-Q 6 unit ACHS IAM Administration Protocol Magnesium Hydroxide 30 ml 10/25/21 00:19 Magnesium Hydroxide (Mom) Oral Liqd Udc PO Q4H PRN Constipation Morphine Sulfate 2 mg 10/25/21 00:19 Morphine 2 Mg/1 Ml Inj IV Q4H PRN Pain, Moderate (4-6) Morphine Sulfate 4 mg 10/25/21 00:19 Morphine 4 Mg/1 Ml Inj IV Q4H PRN Pain , Severe (7-10) Ondansetron HCl 4 mg 10/25/21 00:19 Ondansetron 4 Mg/2 Ml Inj IV Q8H PRN Nausea And Vomiting Sodium Chloride 10 ml 10/25/21 10:00 10/26/21 21:38 Sodium Chloride 0.9% 10 Ml Flush Syringe IV 10 ml BID IAM Administration Sodium Chloride 10 ml 10/25/21 00:19 Sodium Chloride 0.9% 10 Ml Flush Syringe IV PRN PRN LINE FLUSH Nutrition/Malnutrition Assess - Dietary Evaluation Nutrition/Malnutrition Findings: Nutrition Notes Start: 10/25/21 08:28 Freq: Status: Active Protocol: Document 10/25/21 08:28 [email or web address] (Rec: 10/25/21 08:31 BHAVYA [id number]) Nutrition Notes Need for Assessment generated from: MD Order,Education Initial or Follow up Brief Note Other Pertinent Diagnosis (R) great toe wound, hyperglycemia Current Diet Cardiac/Consistent CHO Weight Status Appropriate Subjective/Other Information RD consulted for diet education; pt in ED at this time. Nutrition Intervention Follow-Up By: 10/30/21 Additional Comments F/U: diet education needs
--- NOTE | 2021-10-27 11:58 | Consultation ---
History of Present Illness - Reason for Consult Consult date: 10/27/21 R great toe cellulitis, osteomyelitis Requesting physician: LISANDRA MARTINEZ - History of Present Illness The patient is a 66-year-old male with diabetes, hypertension, prior history of toe osteomyelitis requiring IV antibiotics via PICC line, follows regularly with his half sole fitter Dr. Ireland who has performed multiple surgeries on both his feet was admitted to the hospital after he fell at home due to weakness, blood sugars were getting out of control and right foot great toe started to swell up with redness. Upon admission, x-ray showed bony destructive changes concerning for osteomyelitis, hence infectious diseases was consulted. Patient just completed an MRI. Had sepsis on admission with improvement in leukocytosis with empiric antibiotics. Currently on Unasyn and vancomycin. Review of Systems: General: no fevers,chills or rigors HEENT: no new visual disturbance Respiratory: No cough, sputum, hemoptysis or shortness of breath Cardiovascular: No chest pain, syncope Gastrointestinal: No nausea, vomiting or diarrhea Genitourinary: No dysuria or hematuria Musculoskeletal: No new or worsening neck pain or back pain Neurologic: No headaches, seizures Hematologic: No easy bruising or bleeding Endocrine: No night sweats or acute weight loss Skin: negative for rash, jaundice Psychiatric: No suicidal or homicidal ideation Past History Past Medical History: diabetes, hypertension Past Surgical History: Other (Partial amputation of left middle toe) Social history: no significant social history Medications and Allergies Allergies Allergy/AdvReac Type Severity Reaction Status Date / Time No Known Allergies Allergy Unverified 10/24/21 16:28 Home Medications Medication Instructions Recorded Confirmed Last Taken Type Acetaminophen [Tylenol Extra 500 mg PO Q6HR PRN 10/27/21 10/27/21 Unknown History Strength] Apixaban [Eliquis] 5 mg PO BID 10/27/21 10/27/21 Unknown History Insulin Aspart (Nf) [NovoLOG 10 units SQ AC 10/27/21 10/27/21 Unknown History Flexpen] Insulin Glargine,Hum.rec.anlog 36 unit SQ HS 10/27/21 10/27/21 Unknown History [Lantus Solostar] Losartan Potassium 25 mg PO DAILY 10/27/21 10/27/21 Unknown History Metformin HCl [metFORMIN ER 500 mg PO BID 10/27/21 10/27/21 Unknown History Osmotic] Sotalol HCl [Sotalol] 120 mg PO BID 10/27/21 10/27/21 Unknown History Active Meds: Active Medications Acetaminophen (Acetaminophen 325 Mg Tab) 650 mg PO Q6H PRN PRN Reason: Pain MILD(1-3)/Fever >100.5/ANDRE Dextrose (Dextrose 50% In Water (25gm) 50 Ml Syringe) 0 ml IV Q30MIN PRN; Protocol PRN Reason: Hypoglycemia Sodium Chloride (Nacl 0.9% 1000 Ml) 1,000 mls @ 150 mls/hr IV DIRECT IAM Last Admin: 10/27/21 02:09 Dose: 150 mls/hr Vancomycin HCl 1,250 mg/ (Sodium Chloride) 275 mls @ 166.667 mls/hr IV Q18H [facility] Last Admin: 10/27/21 03:14 Dose: 166.667 mls/hr Ampicillin Sodium/Sulbactam Sodium (Unasyn/Ns 3 Gm/100 Ml) 3 gm in 100 mls @ 100 mls/hr IV Q6HR [facility]; Protocol Last Admin: 10/27/21 00:10 Dose: 100 mls/hr Insulin Glargine (Insulin Glargine 100 Units/Ml) 25 units SUB-Q QHS IAM Insulin Human Lispro (Insulin Lispro 100 Unit/Ml) 0 unit SUB-Q ACHS [facility]; Protocol Last Admin: 10/26/21 22:10 Dose: 6 unit Magnesium Hydroxide (Magnesium Hydroxide (Mom) Oral Liqd Udc) 30 ml PO Q4H PRN PRN Reason: Constipation Morphine Sulfate (Morphine 2 Mg/1 Ml Inj) 2 mg IV Q4H PRN PRN Reason: Pain, Moderate (4-6) Morphine Sulfate (Morphine 4 Mg/1 Ml Inj) 4 mg IV Q4H PRN PRN Reason: Pain , Severe (7-10) Ondansetron HCl (Ondansetron 4 Mg/2 Ml Inj) 4 mg IV Q8H PRN PRN Reason: Nausea And Vomiting Sodium Chloride (Sodium Chloride 0.9% 10 Ml Flush Syringe) 10 ml IV BID [facility] Last Admin: 10/26/21 21:38 Dose: 10 ml Sodium Chloride (Sodium Chloride 0.9% 10 Ml Flush Syringe) 10 ml IV PRN PRN PRN Reason: LINE FLUSH Physical Examination - Physical Exam Narrative exam: Physical Exam: Constitutional: Alert, cooperative. No acute distress Head, Ears, Nose: Normocephalic, atraumatic. External ears, nose normal Eyes: Conjunctivae/corneas clear. No icterus. No ptosis. Neck: Supple, no meningeal signs Cardiovascular: S1, S2 + Respiratory: Good air entry, clear to auscultation bilaterally GI: Soft, non-tender; bowel sounds normal. No peritoneal signs Musculoskeletal: Right great toe with significant swelling, erythema. Third toe with evidence of prior surgery Skin: No rash or abscess Hem/Lymphatic: No palpable cervical or supraclavicular nodes. No lymphangitis Psych: Mood ok. Affect normal Neurological: Awake, alert, oriented. No gross abnormality - Constitutional Vitals: Vital Signs Temp Pulse Resp BP Pulse Ox 97.9 F 70 17 144/81 98 10/27/21 05:40 10/27/21 05:40 10/27/21 05:40 10/27/21 05:40 10/27/21 05:40 Temperature -Last 24 Hours Temperature 97.9 F Temperature 97.6 F Temperature 98.5 F Results - Labs CBC & Chem 7: 10/27/21 04:37 10/27/21 04:37 Labs: Abnormal lab results 10/26/21 10/26/21 10/26/21 Range/Units 12:22 17:16 21:40 Hgb (11.8-15.2) gm/dl Hct (35.5-45.6) % RDW (13.2-15.2) % [place] % (Auto) (0.0-7.3) % [place] # (Auto) (0.0-0.8) K/mm3 Seg Neutrophils % (40.0-70.0) % Glucose (75-100) mg/dL POC Glucose 332 H 295 H 282 H (70-105) mg/dL 10/27/21 10/27/21 10/27/21 Range/Units 04:37 04:37 07:46 Hgb 11.5 L (11.8-15.2) gm/dl Hct 33.5 L (35.5-45.6) % RDW 12.4 L (13.2-15.2) % [place] % (Auto) 11.4 H (0.0-7.3) % [place] # (Auto) 1.0 H (0.0-0.8) K/mm3 Seg Neutrophils % 70.7 H (40.0-70.0) % Glucose 208 H (75-100) mg/dL POC Glucose 183 H (70-105) mg/dL 10/27/21 Range/Units 11:49 Hgb (11.8-15.2) gm/dl Hct (35.5-45.6) % RDW (13.2-15.2) % [place] % (Auto) (0.0-7.3) % [place] # (Auto) (0.0-0.8) K/mm3 Seg Neutrophils % (40.0-70.0) % Glucose (75-100) mg/dL POC Glucose 321 H (70-105) mg/dL - Imaging and Cardiology Chest x-ray: report reviewed, image reviewed (no pneumonia) Assessment and Plan Cultures: 10/24/2021 blood culture: GPC, gram variable rods A/P: 66-year-old male with diabetes, hypertension, CAD, prior history of toe osteomyelitis requiring IV antibiotics via PICC line, follows regularly with his half sole fitter Dr. Ireland who has performed multiple surgeries on both his feet was admitted to the hospital after he fell at home due to weakness, blood sugars were getting out of control and right foot great toe started to swell up with redness: #Sepsis, secondary to right great toe cellulitis, underlying osteomyelitis: toe with significant swelling, x-ray with bony destructive change. #GPC bacteremia: Likely due to above #Diabetes mellitus uncontrolled Recs: -Continue empiric Unasyn and vancomycin for now -Follow-up blood cultures -Arterial studies ordered -Follow-up podiatry evaluation -Follow-up MRI -TTE, repeat blood cultures due to bacteremia Hui Ghosh MD, FACP, [facility] ([facility]) O: [phone] F: [phone] C: [phone]
--- NOTE | 2021-10-27 13:23 | Magnetic Resonance Report ---
MRI RIGHT FOOT WITHOUT CONTRAST INDICATION / CLINICAL INFORMATION: right big toe osteo. TECHNIQUE: Multiplanar, multisequence MR images were obtained. COMPARISON: Right foot x-ray 10/24/2021 FINDINGS: BONES: Extensive destruction with abnormal hypointense T1 and hyperintense T2 signal within the first toe distal phalanx. There is mild hyperintense T1 and hyperintense T2 signal within the first toe pr oximal phalanx as well.. No fracture. No osseous lesion. JOINTS: Large effusion first DIP joints . SUBCUTANEOUS SOFT TISSUES: Ulcer along the distal aspect of first toe. Moderate subcutaneous edema wi thin the dorsal aspect of foot and first toe. Loculated soft tissue abscess/fluid collection extends along the dorsal aspect of first toe proximal phalanx 4 3.5 cm in length on sagittal image 20. MUSCLES: No significant abnormality. FLEXOR TENDONS: No significant abnormality. EXTENSOR TENDONS: No significant abnormality. LIGAMENTS: No significant abnormality. ADDITIONAL FINDINGS: None. IMPRESSION: 1. Acute osteomyelitis involving first toe distal and proximal phalanges with septic arthritis of fir st IP joint and loculated abscess along dorsal aspect of first toe metatarsal. 2. Moderate cellulitis Signer Name: Phil Bucio MD Signed: 10/27/2021 1:18 PM Workstation Name: [id number]
--- NOTE | 2021-10-27 17:51 | Vascular Lab Report ---
DUPLEX DOPPLER LOWER EXTREMITY ARTERIAL, BILATERAL INDICATION / CLINICAL INFORMATION: peripheral vascular disease, wounds. TECHNIQUE: Arterial duplex examination of both lower extremities performed using B-mode, color flow a nd spectral Doppler assessment. FINDINGS: RIGHT: Common Femoral Artery: PSV 109 cm/sec. Triphasic waveform. Proximal SFA: PSV 106 cm/sec. Triphasic waveform. Mid SFA: PSV 156 cm/sec. Triphasic waveform. Distal SFA: PSV 119 cm/sec. Triphasic waveform. Popliteal artery: PSV 138 cm/sec. Triphasic waveform. Posterior tibial artery: PSV 142 cm/sec. Monophasic waveform. Dorsalis Pedis Artery: PSV 38 cm/sec. Monophasic waveform. LEFT: Common Femoral Artery: PSV 108 cm/sec. Triphasic waveform. Proximal SFA: PSV 99 cm/sec. Triphasic waveform. Mid SFA: PSV 129 cm/sec. Biphasic waveform. Distal SFA: PSV 89 cm/sec. Biphasic waveform. Popliteal artery: PSV 88 cm/sec. Biphasic waveform. Posterior tibial artery: PSV 124 cm/sec. Biphasic waveform. Dorsalis Pedis Artery: PSV 40 cm/sec. Biphasic waveform. IMPRESSION: 1. Mild atherosclerotic disease is noted. This appears to be most prominent in the runoff vessels. Th ere is monophasic flow at the ankle on the right. Doppler Waveform: - Triphasic is normal. - Biphasic is abnormal if clear transition from triphasic signal along vascular tree. - Monophasic is abnormal. Signer Name: Ayo German MD Signed: 10/27/2021 5:47 PM Workstation Name: [id number]
[2021-10-27] MEDS: INSULIN GLARGINE 100 UNITS/ML SUB-Q SCH (22:15)
[2021-10-28] MEDS: AMPICILLIN/SULBACTA 3GM/100ML 3 GM/100 ML BAG IV SCH ×4 (00:11→18:35)
[2021-10-28] MEDS: VANCOMYCIN 1,250 MG in SODIUM CHLORIDE 0.9% 250ML 250 ML IV SCH ×2 (02:05→18:33)
[2021-10-28] MEDS: SODIUM CHLORIDE 0.9% 1000 ML 1,000 ML IV SCH ×2 (05:14→13:18)
[2021-10-28] MEDS: INSULIN LISPRO 100 UNIT/ML SUB-Q SCH ×4 (09:04→21:30)
--- NOTE | 2021-10-28 11:40 | Progress Note ---
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 Ireland who has performed multiple surgeries on both his feet was admitted to the hospital after he fell at home due to weakness, blood sugars were getting out of control and right foot great toe started to swell up with redness: #Sepsis, secondary to right great toe cellulitis, underlying osteomyelitis: toe with significant swelling, x-ray with bony destructive change. MRI right foot without contrast showed acute osteomyelitis of the first toe distal and proximal phalanges with septic arthritis of the first IP joint and loculated abscess along the dorsal aspect of the first toe metatarsal, moderate cellulitis. #GPC bacteremia: Likely due to above. TTE showed increased echogenicity of the aortic valve annulus. Due to indwelling bioprosthetic valve, recommend TENNILLE. #Peripheral vascular disease: Arterial studies showed mild arthrosclerotic disease as well as monophasic flow at the ankle on the right. #Diabetes mellitus uncontrolled Recs: -Continue empiric Unasyn and vancomycin for now, target vancomycin trough: 10-20 mcg/ml -Follow-up blood cultures -Due to indwelling bioprosthetic valve, recommend TENNILLE -Recommend vascular surgery evaluation -Repeat blood cultures ordered -Follow-up podiatry evaluation d/w Dr. Batres. Hui Ghosh MD, FACP, [facility] ([facility]) O: [phone] F: [phone] C: [phone] Subjective Date of service: 10/28/21 Interval history: No fever. No new complaints. Tolerating abx, no vomiting or rash. Objective - Exam Narrative Exam: Physical Exam: Constitutional: Alert, cooperative. No acute distress Head, Ears, Nose: Normocephalic, atraumatic. External ears, nose normal Eyes: Conjunctivae/corneas clear. No icterus. No ptosis. Neck: Supple, no meningeal signs Cardiovascular: S1, S2 + Respiratory: Good air entry, clear to auscultation bilaterally GI: Soft, non-tender; bowel sounds normal. No peritoneal signs Musculoskeletal: Right great toe with significant swelling, erythema. Third toe with evidence of prior surgery Skin: No rash or abscess Hem/Lymphatic: No palpable cervical or supraclavicular nodes. No lymphangitis Psych: Mood ok. Affect normal Neurological: Awake, alert, oriented. No gross abnormality - Constitutional Vitals: Vital Signs Temp Pulse Resp BP Pulse Ox 98.0 F 68 16 167/92 98 10/28/21 04:35 10/28/21 04:35 10/28/21 04:35 10/28/21 04:35 10/28/21 04:35 Temperature -Last 24 Hours Temperature 98.0 F Temperature 98.0 F - Labs CBC & Chem 7: 10/27/21 04:37 10/27/21 04:37 Labs: Abnormal lab results 10/27/21 10/27/21 10/27/21 Range/Units 11:49 15:57 21:57 POC Glucose 321 H 372 H 216 H (70-105) mg/dL 10/28/21 10/28/21 Range/Units 07:33 11:11 POC Glucose 188 H 279 H (70-105) mg/dL
--- NOTE | 2021-10-28 20:57 | Progress Note ---
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 Plan to address problem: Accu-Cheks and coverage Check A1c (4) HTN (hypertension) Current Visit: Yes Status: Chronic Qualifiers: Hypertension type: primary hypertension Qualified Code(s): I10 - Essential (primary) hypertension Plan to address problem: Continue antihypertensives and adjust medications (5) DVT prophylaxis Current Visit: Yes Status: Acute Plan to address problem: On anticoagulation GI prophylaxis (6) Advance care planning Current Visit: Yes Status: Acute Plan to address problem: Disease education conducted, care plan discussed, diagnosis discussed, prognosis discussed, and patient acknowledged understanding with care plan. Patient is full code. +30 minutes. Subjective Date of service: 10/28/21 Principal diagnosis: Right great toe osteomyelitis, cellulitis Interval history: 66-year-old male with known history of hypertension and diabetes mellitus presenting to the emergency room today for evaluation of possible infected toe and elevated blood glucose. Patient states he had an injury to the right big toe few weeks ago which started to look infected. He has an upcoming appointment with his podiatristDr. Ireland. Patient was said to have been found in feces at home today. Patient indicated his blood sugar has been elevated at home. Work-up in the emergency room revealed leukocytosis of 24 sodium 132, BUN of 28 and creatinine 1.6. Glucose was 495. Chest x-ray shows age-indeterminate posterior ninth rib fracture basilar opacities favored to be atelectasis scarring. Although airspace disease may have similar appearance. X-ray of the right foot reveals bony destructive changes within the distal aspect of the great toe suggesting osteomyelitis. There is also bone marrow irregularity in the distal third toe. Sepsis. Patient meets criteria given the tachycardia, leukocytosis and diagnosis of osteomyelitis. Right big toe osteomyelitis/cellulitis. Diabetes mellitus type 2, uncontrolled Leukocytosis Hypertension. 10/26/2021. Check MRI of right foot. Await ID consultation. Follow-up blood cultures. Continue IV antibiotics. Continue SSRI and Accu-Cheks. Continue Lantus at bedtime. Check sed rate. 10/27/2021. Follow-up MRI of the right foot. ID consultation pending. Continue IV antibiotics. Tight glycemic control to promote healing. BG still remains elevated. Increase Lantus insulin. Follow-up sed rate 10/28/2021 Podiatry consult appreciated Patient to get right great toe amputation because of the osteomyelitis Right great toe ulcer still swollen Objective - Constitutional Vitals: Vital Signs - 12hr 10/28/21 14:02 Respiratory 18 Rate O2 Sat by Pulse 99 Oximetry General appearance: Present: no acute distress, well-nourished - EENT Eyes: PERRL, EOM intact ENT: hearing intact, clear oral mucosa Ears: bilateral: normal - Neck Neck: supple, normal ROM - Respiratory Respiratory effort: normal Respiratory: bilateral: CTA - Breasts Breasts: normal - Cardiovascular Heart rate: 78 Rhythm: regular Heart Sounds: Present: S1 & S2. Absent: gallop, rub Extremities: pulses intact, No edema, normal color, Full ROM, abnormal (Right great toe swollen and red and tender) - Gastrointestinal General gastrointestinal: Present: soft, non-tender, non-distended, normal bowel sounds - Genitourinary Male genitourinary: normal - Integumentary Integumentary: clear, warm, dry - Musculoskeletal Musculoskeletal: 1, strength equal bilaterally - Neurologic Neurologic: moves all extremities - Psychiatric Psychiatric: memory intact, appropriate mood/affect, intact judgment & insight - Labs CBC & Chem 7: 10/27/21 04:37 10/29/21 04:27 Labs: Abnormal lab results 10/27/21 10/28/21 10/28/21 Range/Units 21:57 07:33 11:11 POC Glucose 216 H 188 H 279 H (70-105) mg/dL 10/28/21 Range/Units 16:02 POC Glucose 212 H (70-105) mg/dL HEART Score - HEART Score Troponin: Troponin T < 0.010 ng/mL (0.00-0.029) 10/24/21 17:17
[2021-10-28] MEDS: INSULIN GLARGINE 100 UNITS/ML SUB-Q SCH (21:32)
[2021-10-29] MEDS: AMPICILLIN/SULBACTA 3GM/100ML 3 GM/100 ML BAG IV SCH ×5 (00:40→23:14)
[2021-10-29] MEDS: SODIUM CHLORIDE 0.9% 1000 ML 1,000 ML IV SCH ×2 (05:01→12:00)
[2021-10-29 05:23] LABS: BUN/Creatinine Ratio 12; Blood Urea Nitrogen 11 mg/dL (9-20); Calcium 9.6 mg/dL (8.4-10.2); Hemolysis Index 5
[2021-10-29] MEDS: INSULIN LISPRO 100 UNIT/ML SUB-Q SCH ×4 (08:25→23:33)
[2021-10-29] MEDS: VANCOMYCIN 1,250 MG in SODIUM CHLORIDE 0.9% 250ML 250 ML IV SCH (09:09)
--- NOTE | 2021-10-29 10:44 | Progress Note ---
Assessment and Plan Cultures: 10/24/2021 blood culture: Bacillus species, Staph aureus 10/28/2021 blood culture: In process A/P: 66-year-old male with diabetes, hypertension, CAD, bioprosthetic valve, prior history of toe osteomyelitis requiring IV antibiotics via PICC line, follows regularly with his angle furnaceman Dr. Ireland who has performed multiple surgeries on both his feet was admitted to the hospital after he fell at home due to weakness, blood sugars were getting out of control and right foot great toe sta rted to swell up with redness: #Sepsis, secondary to right great toe cellulitis, underlying osteomyelitis: toe with significant swelling, x-ray with bony destructive change. MRI right foot without contrast showed acute osteomyelitis of the first toe distal and proximal phalanges with septic arthritis of the first IP joint and loculated abscess along the dorsal aspect of the first toe metatarsal, moderate cellulitis. #Staph aureus bacteremia bacteremia: Likely due to above. TTE showed increased echogenicity of the aortic valve annulus. Due to indwelling bioprosthetic valve, recommend TENNILLE. #Peripheral vascular disease: Arterial studies showed mild arthrosclerotic disease as well as monophasic flow at the ankle on the right. #Diabetes mellitus uncontrolled #Bacillus bacteremia: Likely contaminant Recs: -Continue Unasyn and vancomycin for now, target vancomycin trough: 10-20 mcg/ml -Follow-up repeat blood cultures -Due to indwelling bioprosthetic valve, recommend TENNILLE -Recommend vascular surgery evaluation -Follow-up podiatry evaluation Hui Ghosh MD, FACGalen, JEANINE [facility] O: [phone] F: [phone] C: [phone] Subjective Date of service: 10/29/21 Interval history: No fever. No new complaints. Tolerating abx, no vomiting or rash. Says he was seen by Dr. Ireland yesterday. Objective - Exam Narrative Exam: Physical Exam: Constitutional: Alert, cooperative. No acute distress Head, Ears, Nose: Normocephalic, atraumatic. External ears, nose normal Eyes: Conjunctivae/corneas clear. No icterus. No ptosis. Neck: Supple, no meningeal signs Cardiovascular: S1, S2 + Respiratory: Good air entry, clear to auscultation bilaterally GI: Soft, non-tender; bowel sounds normal. No peritoneal signs Musculoskeletal: Right great toe with significant swelling, erythema. Third toe with evidence of prior surgery Skin: No rash or abscess Hem/Lymphatic: No palpable cervical or supraclavicular nodes. No lymphangitis Psych: Mood ok. Affect normal Neurological: Awake, alert, oriented. No gross abnormality - Constitutional Vitals: Vital Signs Temp Pulse Resp BP Pulse Ox 97.9 F 76 18 174/96 99 10/29/21 04:22 10/29/21 04:22 10/29/21 08:56 10/29/21 04:22 10/29/21 08:56 Temperature -Last 24 Hours Temperature 97.9 F Temperature 98.1 F Temperature 98.0 F Temperature 98.9 F - Labs CBC & Chem 7: 10/27/21 04:37 10/29/21 04:27 Labs: Abnormal lab results 10/28/21 10/28/21 10/28/21 Range/Units 11:11 16:02 21:02 Glucose (75-100) mg/dL POC Glucose 279 H 212 H 316 H (70-105) mg/dL 10/29/21 10/29/21 Range/Units 04:27 08:05 Glucose 121 H (75-100) mg/dL POC Glucose 131 H (70-105) mg/dL
[2021-10-29] MEDS ORDERED: ACETAMINOPHEN 500 MG PO PRN (20:30)
[2021-10-29] MEDS ORDERED: NON-FORMULARY EACH (Metformin Hcl [Metformin Er Osmotic] 500 MG Tab.Er.24) PO SCH (22:00)
[2021-10-29] MEDS ORDERED: NON-FORMULARY EACH (Sotalol Hcl [Sotalol] 120 MG Tablet) PO SCH (22:00)
[2021-10-29] MEDS ORDERED: NON-FORMULARY EACH (Insulin Glargine,Hum.Rec.Anlog [Lantus Solostar] 100 UNIT/ML Insuln.Pe SQ SCH (22:00)
[2021-10-29] MEDS: metFORMIN 500 MG TAB PO SCH (23:14)
[2021-10-29] MEDS: HEPARIN 5,000 UNIT/1 ML VIAL SUB-Q SCH (23:14)
[2021-10-29] MEDS: ACETAMINOPHEN 325 MG TAB PO PRN (23:20)
[2021-10-29] MEDS: INSULIN GLARGINE 100 UNITS/ML SUB-Q SCH (23:30)
[2021-10-30] MEDS: VANCOMYCIN 1,250 MG in SODIUM CHLORIDE 0.9% 250ML 250 ML IV SCH ×2 (04:36→22:14)
[2021-10-30] MEDS: AMPICILLIN/SULBACTA 3GM/100ML 3 GM/100 ML BAG IV SCH ×3 (06:13→17:14)
[2021-10-30] MEDS ORDERED: NON-FORMULARY EACH (Insulin Aspart (Nf) 100 UNIT/ML Insuln.Pen) SQ SCH (07:30)
[2021-10-30] MEDS: INSULIN LISPRO 100 UNIT/ML SUB-Q SCH ×4 (07:54→22:14)
[2021-10-30] MEDS ORDERED: LOSARTAN POTASSIUM 25 MG PO SCH (10:00)
[2021-10-30] MEDS: metFORMIN 500 MG TAB PO SCH ×2 (10:24→17:18)
[2021-10-30] MEDS: LOSARTAN 25 MG TAB PO SCH (10:24)
[2021-10-30] MEDS: HEPARIN 5,000 UNIT/1 ML VIAL SUB-Q SCH ×2 (10:26→22:15)
--- NOTE | 2021-10-30 12:15 | Progress Note ---
Assessment and Plan - Patient Problems (1) Sepsis Current Visit: Yes Status: Acute Qualifiers: Sepsis type: sepsis due to unspecified organism Plan to address problem: Continue Unasyn and vancomycin (2) Osteomyelitis of foot, right, acute Current Visit: Yes Status: Acute Plan to address problem: Patient antibiotics Podiatry consult appreciated Patient with right great toe amputation We will get arterial duplex scan (3) HTN (hypertension) Current Visit: Yes Status: Chronic Qualifiers: Hypertension type: primary hypertension Qualified Code(s): I10 - Essential (primary) hypertension Plan to address problem: Continue antihypertensives and adjust medications (4) T2DM (type 2 diabetes mellitus) Current Visit: Yes Status: Chronic Qualifiers: Diabetes mellitus [facility] insulin use: unspecified 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 Patient is full code. +30 minutes. Subjective Date of service: 10/29/21 Principal diagnosis: Right great toe osteomyelitis and sepsis Interval history: 66-year-old male with known history of hypertension and diabetes mellitus p resenting to the emergency room today for evaluation of possible infected toe and elevated blood glucose. Patient states he had an injury to the right big toe few weeks ago which started to look infected. He has an upcoming appointment with his podiatristDr. Ireland. Patient was said to have been found in feces at home today. Patient indicated his blood sugar has been elevated at home. Work-up in the emergency room revealed leukocytosis of 24 sodium 132, BUN of 28 and creatinine 1.6. Glucose was 495. Chest x-ray shows age-indeterminate posterior ninth rib fracture basilar opacities favored to be atelectasis scarring. Although airspace disease may have similar appearance. X-ray of the right foot reveals bony destructive changes within the distal aspect of the great toe suggesting osteomyelitis. There is also bone marrow irregularity in the distal third toe. Sepsis. Patient meets criteria given the tachycardia, leukocytosis and diagnosis of osteomyelitis. Right big toe osteomyelitis/cellulitis. Diabetes mellitus type 2, uncontrolled Leukocytosis Hypertension. 10/26/2021. Check MRI of right foot. Await ID consultation. Follow-up blood cultures. Continue IV antibiotics. Continue SSRI and Accu-Cheks. Continue Lantus at bedtime. Check sed rate. 10/27/2021. Follow-up MRI of the right foot. ID consultation pending. Continue IV antibiotics. Tight glycemic control to promote healing. BG still remains elevated. Increase Lantus insulin. Follow-up sed rate 10/28/2021 Podiatry consult appreciated Patient to get right great toe amputation because of the osteomyelitis Right great toe ulcer still swollen 10/29/2021 Patient for right great toe amputation Podiatry consult appreciated Duplex scan heart-arterial negative Echocardiogram normal ejection fraction Objective - Constitutional Vitals: Vital Signs - 12hr 10/30/21 10/30/21 10/30/21 04:40 07:45 10:24 Temperature 97.6 F 98.4 F Pulse Rate 55 L 53 L 76 Respiratory 18 20 Rate Blood Pressure 165/83 159/78 Blood Pressure 144/76 [Right] O2 Sat by Pulse 98 98 Oximetry 10/30/21 10/30/21 10:25 11:49 Temperature 98.3 F Pulse Rate 76 63 Respiratory 18 Rate Blood Pressure 159/78 Blood Pressure 168/72 [Right] O2 Sat by Pulse 98 Oximetry General appearance: Present: no acute distress, well-nourished - EENT Eyes: PERRL, EOM intact ENT: hearing intact, clear oral mucosa Ears: bilateral: normal - Neck Neck: supple, normal ROM - Respiratory Respiratory effort: normal Respiratory: bilateral: CTA - Breasts Breasts: normal - Cardiovascular Heart rate: 78 Rhythm: regular Heart Sounds: Present: S1 & S2. Absent: gallop, rub Extremities: pulses intact, No edema, normal color, Full ROM, abnormal (Right great toe swollen and tender and red) Extremity abnormal: other (As above) - Gastrointestinal General gastrointestinal: Present: soft, non-tender, non-distended, normal bowel sounds - Genitourinary Male genitourinary: normal - Integumentary Integumentary: clear, warm, dry - Musculoskeletal Musculoskeletal: 1, strength equal bilaterally - Neurologic Neurologic: moves all extremities - Psychiatric Psychiatric: memory intact, appropriate mood/affect, intact judgment & insight - Labs CBC & Chem 7: 10/27/21 04:37 10/29/21 04:27 Labs: Abnormal lab results 10/29/21 10/29/21 10/29/21 Range/Units 16:51 21:35 23:29 POC Glucose 216 H 163 H 160 H (70-105) mg/dL 10/30/21 Range/Units 11:30 POC Glucose 145 H (70-105) mg/dL HEART Score - HEART Score Troponin: Troponin T < 0.010 ng/mL (0.00-0.029) 10/24/21 17:17
--- NOTE | 2021-10-30 12:16 | Progress Note ---
Assessment and Plan - Patient Problems (1) Sepsis Current Visit: Yes Status: Acute Qualifiers: Sepsis type: sepsis due to unspecified organism Plan to address problem: Continue Unasyn and vancomycin (2) Osteomyelitis of foot, right, acute Current Visit: Yes Status: Acute Plan to address problem: Patient antibiotics Podiatry consult appreciated Patient with right great toe amputation We will get arterial duplex scan (3) HTN (hypertension) Current Visit: Yes Status: Chronic Qualifiers: Hypertension type: primary hypertension Qualified Code(s): I10 - Essential (primary) hypertension Plan to address problem: Continue antihypertensives and adjust medications (4) T2DM (type 2 diabetes mellitus) Current Visit: Yes Status: Chronic Qualifiers: Diabetes mellitus [facility] insulin use: 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 Patient is full code. +30 minutes. Subjective Date of service: 10/30/21 Principal diagnosis: Right foot osteomyelitis/sepsis Interval history: 66-year-old male with known history of hypertension and diabetes mellitus presenting to the emergency room today for evaluation of possible infected toe and elevated blood glucose. Patient states he had an injury to the right big toe few weeks ago which started to look infected. He has an upcoming appointment with his podiatristDr. Ireland. Patient was said to have been found in feces at home today. Patient indicated his blood sugar has been elevated at home. Work-up in the emergency room revealed leukocytosis of 24 sodium 132, BUN of 28 and creatinine 1.6. Glucose was 495. Chest x-ray shows age-indeterminate posterior ninth rib fracture basilar opacities favored to be atelectasis scarring. Although airspace disease may have similar appearance. X-ray of the right foot reveals bony destructive changes within the distal aspect of the great toe suggesting osteomyelitis. There is also bone marrow irregularity in the distal third toe. Sepsis. Patient meets criteria given the tachycardia, leukocytosis and diagnosis of osteomyelitis. Right big toe osteomyelitis/cellulitis. Diabetes mellitus type 2, uncontrolled Leukocytosis Hypertension. 10/26/2021. Check MRI of right foot. Await ID consultation. Follow-up blood cultures. Continue IV antibiotics. Continue SSRI and Accu-Cheks. Continue Lantus at bedtime. Check sed rate. 10/27/2021. Follow-up MRI of the right foot. ID consultation pending. Continue IV antibiotics. Tight glycemic control to promote healing. BG still remains elevated. Increase Lantus insulin. Follow-up sed rate 10/28/2021 Podiatry consult appreciated Patient to get right great toe amputation because of the osteomyelitis Right great toe ulcer still swollen 10/29/2021 Patient for right great toe amputation Podiatry consult appreciated Duplex scan heart-arterial negative Echocardiogram normal ejection fraction 10/30/2021 Podiatry requested for medical clearance and vascular surgery clearance Echo is normal Patient is medically cleared for right great toe amputation by Dr. Ireland--- clerk secretary Objective - Constitutional Vitals: Vital Signs - 12hr 10/30/21 10/30/21 10/30/21 04:40 07:45 10:24 Temperature 97.6 F 98.4 F Pulse Rate 55 L 53 L 76 Respiratory 18 20 Rate Blood Pressure 165/83 159/78 Blood Pressure 144/76 [Right] O2 Sat by Pulse 98 98 Oximetry 10/30/21 10/30/21 10:25 11:49 Temperature 98.3 F Pulse Rate 76 63 Respiratory 18 Rate Blood Pressure 159/78 Blood Pressure 168/72 [Right] O2 Sat by Pulse 98 Oximetry General appearance: Present: no acute distress, well-nourished - EENT Eyes: PERRL, EOM intact ENT: hearing intact, clear oral mucosa Ears: bilateral: normal - Neck Neck: supple, normal ROM - Respiratory Respiratory effort: normal Respiratory: bilateral: CTA - Breasts Breasts: normal - Cardiovascular Heart rate: 78 Rhythm: regular Heart Sounds: Present: S1 & S2. Absent: gallop, rub Extremities: pulses intact, No edema, normal color, Full ROM - Gastrointestinal General gastrointestinal: Present: soft, non-tender, non-distended, normal bowel sounds - Genitourinary Male genitourinary: normal - Integumentary Integumentary: clear, warm, dry - Musculoskeletal Musculoskeletal: 1, strength equal bilaterally - Neurologic Neurologic: moves all extremities - Psychiatric Psychiatric: memory intact, appropriate mood/affect, intact judgment & insight - Labs CBC & Chem 7: 10/27/21 04:37 10/29/21 04:27 Labs: Abnormal lab results 10/29/21 10/29/21 10/29/21 Range/Units 16:51 21:35 23:29 POC Glucose 216 H 163 H 160 H (70-105) mg/dL 10/30/21 Range/Units 11:30 POC Glucose 145 H (70-105) mg/dL HEART Score - HEART Score Troponin: Troponin T < 0.010 ng/mL (0.00-0.029) 10/24/21 17:17
--- NOTE | 2021-10-30 12:21 | Progress Note ---
Assessment and Plan Cultures: 10/24/2021 blood culture: Bacillus species, Staph aureus 10/28/2021 blood culture: In process A/P: 66-year-old male with diabetes, hypertension, CAD, bioprosthetic valve, prior history of toe osteomyelitis requiring IV antibiotics via PICC line, follows regularly with his medical accounting clerk Dr. Ireland who has performed multiple surgeries on both his feet was admitted to the hospital after he fell at home due to weakness, blood sugars were getting out of control and right foot great toe sta rted to swell up with redness: #Sepsis, secondary to right great toe cellulitis, underlying osteomyelitis: toe with significant swelling, x-ray with bony destructive change. MRI right foot without contrast showed acute osteomyelitis of the first toe distal and proximal phalanges with septic arthritis of the first IP joint and loculated abscess along the dorsal aspect of the first toe metatarsal, moderate cellulitis. #Staph aureus bacteremia bacteremia: Likely due to above. TTE showed increased echogenicity of the aortic valve annulus. Due to indwelling bioprosthetic valve, recommend TENNILLE. #Peripheral vascular disease: Arterial studies showed mild arthrosclerotic disease as well as monophasic flow at the ankle on the right. #Diabetes mellitus uncontrolled #Bacillus bacteremia: Likely contaminant Recs: -Continue Unasyn and vancomycin for now, target vancomycin trough: 10-20 mcg/ml -Follow-up repeat blood cultures -Due to indwelling bioprosthetic valve, ordered TENNILLE -consider vascular surgery evaluation -Follow-up podiatry evaluation for I&D Hui Ghosh MD, FACJEANINE [facility] O: [phone] F: [phone] C: [phone] Subjective Date of service: 10/30/21 Interval history: No fever. No new complaints. Tolerating abx, no vomiting or rash. Objective - Exam Narrative Exam: Physical Exam: Constitutional: Alert, cooperative. No acute distress Head, Ears, Nose: Normocephalic, atraumatic. External ears, nose normal Eyes: Conjunctivae/corneas clear. No icterus. No ptosis. Neck: Supple, no meningeal signs Cardiovascular: S1, S2 + Respiratory: Good air entry, clear to auscultation bilaterally GI: Soft, non-tender; bowel sounds normal. No peritoneal signs Musculoskeletal: Right great toe with significant swelling, erythema. Third toe with evidence of prior surgery Skin: No rash or abscess Hem/Lymphatic: No palpable cervical or supraclavicular nodes. No lymphangitis Psych: Mood ok. Affect normal Neurological: Awake, alert, oriented. No gross abnormality - Constitutional Vitals: Vital Signs Temp Pulse Resp BP Pulse Ox 98.3 F 63 18 168/72 98 10/30/21 11:49 10/30/21 11:49 10/30/21 11:49 10/30/21 11:49 10/30/21 11:49 Temperature -Last 24 Hours Temperature 98.3 F Temperature 98.4 F Temperature 97.6 F Temperature 97.6 F - Labs CBC & Chem 7: 10/27/21 04:37 10/29/21 04:27 Labs: Abnormal lab results 10/29/21 10/29/21 10/29/21 Range/Units 16:51 21:35 23:29 POC Glucose 216 H 163 H 160 H (70-105) mg/dL 10/30/21 Range/Units 11:30 POC Glucose 145 H (70-105) mg/dL
--- NOTE | 2021-10-30 14:54 | Consultation ---
DATE OF CONSULTATION: 10/29/2021 HISTORY OF PRESENT ILLNESS: The patient was on consult from Dr. Yonathan Batres. The patient was admitted into the hospital on 10/24/2021. The patient was seen at bedside on request for Dr. Batres. This is a 66-year-old male with a history of diabetes, hypertension, CAD, bioprosthetic valve, prior history of toe osteomyelitis requiring intravenous antibiotics via PICC line. The patient has been seen regularly by Vadim Ireland DPM JD on numerous occasions. The patient was stable on last visit to Dr. Ireland. However, upon questioning the patient, the patient wore new shoes for 2 hours and foot appeared to become red, swollen and hot and he eventually collapsed at his home in his bathroom. OBJECTIVE FINDINGS: Integument, foot appeared to be red, swollen and hot at the right great toe extending proximally above the ankle joint of the medial and lateral malleoli with cellulitis noted and concentrated on the right great toe with erythema noted and dry scaly skin also present. X-ray analysis performed prior to consult consist of significant swelling, x-ray with bony destructive changes. MRI without contrast, right foot showed acute osteomyelitis of the first distal and proximal phalanges with septic arthritis of the first interphalangeal joint and loculated abscesses along the dorsal aspect of the first toe metatarsal with moderate cellulitis noted. We let it be noted that the patient also has laboratory findings consistent with bacteremia, likely due to the cellulitis and infection of the great toe joints. Additionally, peripheral vascular disease is also noted with arterial study showing atherosclerotic disease as well as monophasic flow at the ankle joint of the right foot less involved. The patient also has uncontrolled diabetes mellitus. ASSESSMENT: 1. Osteomyelitis, right foot. 2. Diabetes. 3. Peripheral vascular disease. RECOMMENDATIONS: Recommendations that partial amputation consisting of removal of distal and proximal phalanx with possible salvage of the toe and possible primary closure as soon as possible. I will seek medical clearance from Vascular Surgery for clearance and also seek clearance from all other treating physicians including anesthesia prior to surgical intervention. The patient can weightbear to tolerance with postop surgical shoe and not to get wet and we will recommend wound care for wound care nurses now and status post surgical intervention. The patient appears to be stable. However, time is of the essence and we would like to request that surgical intervention be performed by Vadim Ireland DPM JD within the next 2-3 days or earlier, telephone number #[phone]. For after hours if he would like to call on any aspects of the proposed treatment, you can reach me at my office at [phone]. TID: [id number] RECEIPT: [id number] JUAN PABLO/WALTER/LU [facility]
[2021-10-30] MEDS: SODIUM CHLORIDE 0.9% 1000 ML 1,000 ML IV SCH (17:14)
--- NOTE | 2021-10-30 18:58 | Event Note ---
Date: 10/30/21 Patient is medically cardiac melendez cleared for surgery Echocardiogram shows normal ejection fraction Duplex arterial scan is shows no blockages. Osteomyelitis of the right great toe. Patient medically cleared for amputation of the right great toe. Discussed with Dr. Ireland
[2021-10-30] MEDS: INSULIN GLARGINE 100 UNITS/ML SUB-Q SCH (22:14)
[2021-10-30] MEDS: ACETAMINOPHEN 325 MG TAB PO PRN (22:16)
[2021-10-31] MEDS: AMPICILLIN/SULBACTA 3GM/100ML 3 GM/100 ML BAG IV SCH ×2 (01:34→05:53)
[2021-10-31] MEDS: SODIUM CHLORIDE 0.9% 1000 ML 1,000 ML IV SCH (09:37)
[2021-10-31] MEDS: metFORMIN 500 MG TAB PO SCH ×2 (09:38→17:24)
[2021-10-31] MEDS: HEPARIN 5,000 UNIT/1 ML VIAL SUB-Q SCH ×2 (09:38→22:18)
[2021-10-31] MEDS: INSULIN LISPRO 100 UNIT/ML SUB-Q SCH ×4 (09:39→22:28)
[2021-10-31] MEDS: LOSARTAN 25 MG TAB PO SCH (09:42)
--- NOTE | 2021-10-31 09:47 | Consultation ---
History of Present Illness - Reason for Consult Consult date: 10/31/21 Right Foot Osteomyelitis Requesting physician: TROY TIMMONS - History of Present Illness The patient is a 66-year-old male with a history of hypertension and diabetes who presented to the emergency department with complaint of a right toe infection that has been present for approximately 2 weeks. The patient states that he purchased a new pair shoes, that he believes did not properly fit, and b flora to cause an ulcer on his toe resulting in an underlying infection. He then noted severe swelling in the right first toe and was seen by his live games dealer Dr. Mcdonald. Upon his initial presentation he was found to have leukocytosis of 20 and he eventually underwent an MRI that demonstrates osteomyelitis of the distal and mid phalanx of the right first toe. He underwent an arterial duplex that demonstrated multiphasic flow throughout the majority of the right lower extremity however there was monophasic flow within the tibial vessels. The patient denies any history of claudication. He does have neuropathy of his feet. He has no additional complaints at this time. Past History Past Medical History: diabetes, hypertension Past Surgical History: Other (Partial amputation of left middle toe, partial amputation of the right second toe) Social history: no significant social history Medications and Allergies Allergies Allergy/AdvReac Type Severity Reaction Status Date / Time No Known Allergies Allergy Unverified 10/24/21 16:28 Home Medications Medication Instructions Recorded Confirmed Last Taken Type Acetaminophen [Tylenol Extra 500 mg PO Q6HR PRN 10/27/21 10/27/21 Unknown History Strength] Apixaban [Eliquis] 5 mg PO BID 10/27/21 10/27/21 Unknown History Insulin Aspart (Nf) [NovoLOG 10 units SQ AC 10/27/21 10/27/21 Unknown History Flexpen] Insulin Glargine,Hum.rec.anlog 36 unit SQ HS 10/27/21 10/27/21 Unknown History [Lantus Solostar] Losartan Potassium 25 mg PO DAILY 10/27/21 10/27/21 Unknown History Metformin HCl [metFORMIN ER 500 mg PO BID 10/27/21 10/27/21 Unknown History Osmotic] Sotalol HCl [Sotalol] 120 mg PO BID 10/27/21 10/27/21 Unknown History Active Meds: Active Medications Acetaminophen (Acetaminophen 325 Mg Tab) 650 mg PO Q6H PRN PRN Reason: Pain MILD(1-3)/Fever >100.5/ANDRE Last Admin: 10/30/21 22:16 Dose: 650 mg Dextrose (Dextrose 50% In Water (25gm) 50 Ml Syringe) 0 ml IV Q30MIN PRN; Protocol PRN Reason: Hypoglycemia Heparin Sodium (Porcine) (Heparin 5,000 Unit/1 Ml Vial) 5,000 unit SUB-Q Q12HR IAM Last Admin: 10/30/21 22:15 Dose: 5,000 unit Sodium Chloride (Nacl 0.9% 1000 Ml) 1,000 mls @ 150 mls/hr IV DIRECT IAM Last Admin: 10/30/21 17:14 Dose: 150 mls/hr Vancomycin HCl 1,250 mg/ (Sodium Chloride) 275 mls @ 166.667 mls/hr IV Q18H IAM Last Admin: 10/30/21 22:14 Dose: 166.667 mls/hr Ampicillin Sodium/Sulbactam Sodium (Unasyn/Ns 3 Gm/100 Ml) 3 gm in 100 mls @ 100 mls/hr IV Q6HR IAM; Protocol Last Admin: 10/31/21 05:53 Dose: 100 mls/hr Insulin Glargine (Insulin Glargine 100 Units/Ml) 36 units SUB-Q QHS IAM Last Admin: 10/30/21 22:14 Dose: Not Given Insulin Human Lispro (Insulin Lispro 100 Unit/Ml) 0 unit SUB-Q ACHS IAM; Protocol Last Admin: 10/30/21 22:14 Dose: Not Given Losartan Potassium (Losartan 25 Mg Tab) 25 mg PO QDAY [facility] Last Admin: 10/30/21 10:24 Dose: 25 mg Magnesium Hydroxide (Magnesium Hydroxide (Mom) Oral Liqd Udc) 30 ml PO Q4H PRN PRN Reason: Constipation Metformin HCl (Metformin 500 Mg Tab) 500 mg PO BIDDIAB [facility] Last Admin: 10/30/21 17:18 Dose: 500 mg Morphine Sulfate (Morphine 2 Mg/1 Ml Inj) 2 mg IV Q4H PRN PRN Reason: Pain, Moderate (4-6) Morphine Sulfate (Morphine 4 Mg/1 Ml Inj) 4 mg IV Q4H PRN PRN Reason: Pain , Severe (7-10) Ondansetron HCl (Ondansetron 4 Mg/2 Ml Inj) 4 mg IV Q8H PRN PRN Reason: Nausea And Vomiting Sodium Chloride (Sodium Chloride 0.9% 10 Ml Flush Syringe) 10 ml IV BID [facility] Last Admin: 10/30/21 22:14 Dose: 10 ml Sodium Chloride (Sodium Chloride 0.9% 10 Ml Flush Syringe) 10 ml IV PRN PRN PRN Reason: LINE FLUSH Sotalol HCl (Sotalol 80 Mg Tab) 120 mg PO Q12HR [facility] Last Admin: 10/30/21 22:17 Dose: 120 mg Review of Systems All systems: negative Exam - Constitutional Vitals: Temp Pulse Resp BP Pulse Ox 98.1 F 69 20 163/88 97 10/31/21 05:31 10/31/21 05:31 10/31/21 05:31 10/31/21 05:31 10/31/21 05:31 General appearance: Present: no acute distress - Respiratory Respiratory effort: normal - Cardiovascular Rhythm: regular - Extremities Extremities: pulses intact (Palpable dorsalis pedis and posterior tibial pulses bilaterally), abnormal (Right first toe with significant swelling and fluctuance) Extremity abnormal: edema (Edema of the right foot), erythema (Erythema surro unding the right first toe) - Abdominal General gastrointestinal: Present: soft Male genitourinary: Present: deferred - Rectal Rectal Exam: deferred Results - Labs CBC & Chem 7: 10/27/21 04:37 10/29/21 04:27 Labs: Abnormal lab results 10/30/21 10/30/21 10/31/21 Range/Units 11:30 17:07 01:39 POC Glucose 145 H 160 H 140 H (70-105) mg/dL 10/31/21 Range/Units 08:46 POC Glucose 157 H (70-105) mg/dL Assessment and Plan The patient is a 66-year-old male with a history of hypertension and diabetes mellitus and previous partial toe amputations secondary to his diabetic neuropathy and ulcerations. He presents with osteomyelitis of the right first toe. He had an arterial duplex that suggested monophasic flow within the right tibial vessels however he has easily palpable pedal pulses on exam. I believe he has adequate arterial flow to heal any operation at this time. The monophasic flow within his tibial vessels is likely a hyperemic reaction to the infection. Dr. Ireland can proceed with his planned partial amputation of the toe.
--- NOTE | 2021-10-31 10:35 | Progress Note ---
Assessment and Plan Cultures: 10/24/2021 blood culture: Bacillus species, MSSA 10/28/2021 blood culture: No growth A/P: 66-year-old male with diabetes, hypertension, CAD, bioprosthetic valve, prior history of toe osteomyelitis requiring IV antibiotics via PICC line, follows regularly with his caul fat puller Dr. Ireland who has performed multiple surgeries on both his feet was admitted to the hospital after he fell at home due to weakness, blood sugars were getting out of control and right foot great toe started to swell up with redness: #Sepsis, secondary to right great toe cellulitis, underlying osteomyelitis: toe with significant swelling, x-ray with bony destructive change. MRI right foot without contrast showed acute osteomyelitis of the first toe distal and proximal phalanges with septic arthritis of the first IP joint and loculated abscess along the dorsal aspect of the first toe metatarsal, moderate cellulitis. #MSSA bacteremia bacteremia: Likely due to above. TTE showed increased echogenicity of the aortic valve annulus. Due to indwelling bioprosthetic valve, recommend TENNILLE, planned for Wednesday. #Peripheral vascular disease: Arterial studies showed mild arthrosclerotic dis ease as well as monophasic flow at the ankle on the right. Vascular evaluated, no interventions planned. #Diabetes mellitus uncontrolled #Bacillus bacteremia: Likely contaminant Recs: -isolate is MSSA, switched to IV Ancef -d/w label cutter, TENNILLE on Wednesday -awaiting surgery by podiatry: I&D and partial amputation -plan for total 6 weeks of IV Ancef Hui Ghosh MD, FACPJEANINE [facility] O: [phone] F: [phone] C: [phone] Subjective Date of service: 10/31/21 Principal diagnosis: Right foot osteomyelitis/sepsis Interval history: No fever. No new complaints. Was seen by vascular. Objective - Exam Narrative Exam: Physical Exam: Constitutional: Alert, cooperative. No acute distress Head, Ears, Nose: Normocephalic, atraumatic. External ears, nose normal Eyes: Conjunctivae/corneas clear. No icterus. No ptosis. Neck: Supple, no meningeal signs Cardiovascular: S1, S2 + Respiratory: Good air entry, clear to auscultation bilaterally GI: Soft, non-tender; bowel sounds normal. No peritoneal signs Musculoskeletal: Right great toe with swelling, erythema. Third toe with evidence of prior surgery Skin: No rash or abscess Hem/Lymphatic: No palpable cervical or supraclavicular nodes. No lymphangitis Psych: Mood ok. Affect normal Neurological: Awake, alert, oriented. No gross abnormality - Constitutional Vitals: Vital Signs Temp Pulse Resp BP Pulse Ox 98.1 F 55 L 20 151/67 97 10/31/21 05:31 10/31/21 09:42 10/31/21 05:31 10/31/21 09:42 10/31/21 05:31 Temperature -Last 24 Hours Temperature 98.1 F Temperature 97.8 F Temperature 97.9 F Temperature 98.3 F - Labs CBC & Chem 7: 10/27/21 04:37 10/29/21 04:27 Labs: Abnormal lab results 10/30/21 10/30/21 10/31/21 Range/Units 11:30 17:07 01:39 POC Glucose 145 H 160 H 140 H (70-105) mg/dL 10/31/21 Range/Units 08:46 POC Glucose 157 H (70-105) mg/dL
--- NOTE | 2021-10-31 12:12 | Anesthesia Day of Surgery ---
Anesthesia Day of Surgery - Day of Surgery Patient Examined: Yes Patient H&P Reviewed: Yes Patient is NPO: Yes (after 8:30 am)
--- NOTE | 2021-10-31 12:16 | Anesthesia Consultation ---
Anesthesia Consult and Med Hx Date of service: 10/31/21 - Airway Anesthetic Teeth Evaluation: Dentures ROM Head & Neck: Adequate Mental/Hyoid Distance: Adequate Mallampati Class: Class II Intubation Access Assessment: Probably Good - Pulmonary Exam CTA: Yes - Cardiac Exam Cardiac Exam: No Murmur Anesthetic Concerns: Atrial fibrillation - Pre-Operative Health Status ASA Pre-Surgery Classification: ASA3 Proposed Anesthetic Plan: General - Cardiovascular System Hx Hypertension: Yes Hx Coronary Artery Disease: Yes Hx Percutaneous Transluminal Coronary Angioplasty (PTCA): Yes (3 vessel CABG 2010) Hx Cardia Arrhythmia: Yes (afib) Hx Valvular Heart Disease: Yes (aortic valve replacement 2010; mild TR and MR EF60-65%) - Endocrine Hx Insulin Dependent Diabetes: Yes - Additional Comments Anesthesia Medical History Comments: osteomylitis right great toe. surgical history includes: inguinal hernia repairs, cataracts
[2021-10-31] MEDS ORDERED: GENTAMICIN/NS 100 MG/100 ML 100 MG/100 ML BAG IV ONE (17:51)
[2021-10-31] MEDS ORDERED: LIDOCAINE MPF (2%) 20 MG/1 ML VIAL 5 ML ONE (18:29)
[2021-10-31] MEDS ORDERED: MIDAZOLAM 2 MG/2 ML INJ ONE (18:29)
[2021-10-31] MEDS ORDERED: propofoL 200 MG/20 ML VIAL IV ONE (18:29)
[2021-10-31] MEDS ORDERED: BUPIVACAINE/PF (0.5%) 5 MG/1 ML 30 ML VIAL INFILTRATI ONE ×2 (18:40→19:07)
[2021-10-31] MEDS ORDERED: ceFAZolin 1 GM VIAL ONE (18:55)
[2021-10-31] MEDS ORDERED: SODIUM CHLORIDE 0.9% IRR 1,000 ML BOTTLE IR ONE (19:08)
[2021-10-31] MEDS ORDERED: SODIUM CHLORIDE 0.9% 1000 ML IV SOLN IR ONE (19:08)
[2021-10-31] MEDS ORDERED: BACITRACIN ZINC OINT 28.4 GM TP ONE ×2 (19:21→19:26)
--- NOTE | 2021-10-31 19:58 | Post Anesthesia Evaluation ---
- Post Anesthesia Evaluation Patient Participated: Yes Airway Patent: Yes Stable Respiratory Function: Yes Nausea/Vomiting: No Temp > 96.8F: Yes Pain Manageable: Yes Adequeate Hydration: Yes Anesthesia Complications: No Block Receding Appropriately: Not Applicable Patient on Ventilator: No
--- NOTE | 2021-10-31 21:39 | XRay Report ---
RIGHT FOOT 3 VIEW(S) INDICATION / CLINICAL INFORMATION: S/p Partial Amputation with /Great Toe Right Foot COMPARISON: None available. FINDINGS: BONES / JOINT(S): There is ongoing destruction of the proximal and distal phalanges of the first digi t consistent with a progressive process such as osteomyelitis. Redemonstrated destructive changes of the distal aspect of the third digit as well, also likely representing osteomyelitis. SOFT TISSUES: No clearly seen skin ulcer. ADDITIONAL FINDINGS: None. Signer Name: Ramu Slater DO Signed: 10/31/2021 9:35 PM Workstation Name: [id number]
[2021-10-31] MEDS: INSULIN GLARGINE 100 UNITS/ML SUB-Q SCH (22:29)
--- NOTE | 2021-11-01 03:46 | Operative Report ---
DATE OF SURGERY: 10/31/2021 PREOPERATIVE DIAGNOSIS: Osteomyelitis, right foot great toe. POSTOPERATIVE DIAGNOSIS: Osteomyelitis, right foot great toe. SURGICAL PROCEDURE: Partial amputation with removal of bone and soft tissue with primary closure and rotational flap, right great toe. ANESTHESIA: Monitored anesthesia care with local sedation. TOURNIQUET: None. ESTIMATED BLOOD LOSS: Less than 50 mL. DESCRIPTION OF PROCEDURE: The patient was brought into the operating room and placed on the operating table in supine position. Following intravenous sedation, the patient was given 2 grams of Ancef prophylactically. After adequate IV sedation, the right great toe, which was swollen significantly in nature and erythematous, was cleansed with alcohol and 10 mL of 0.25% Marcaine plain was infiltrated to the affected site without incident. At this time, the foot was then scrubbed, prepped and draped in the usual aseptic manner and the procedure was thus begun. At this time, attention was directed to the right great toe, the medial aspect, in which a 6 cm linear longitudinal incision was made at distal aspect of the toe extending proximally to the metatarsophalangeal joint. The initial incision was made with a 10 blade and deepened without separation of skin layers all the way down to the hallux interphalangeal joint in the first metatarsophalangeal joint area. Let it be noted, it was evident at the hallux interphalangeal joint the bone appeared to be discolored, soft in nature and grayish in color. At this time, the distal phalanx and the proximal phalanx were removed without incident. There was noted to be a good bony texture to the head of the first metatarsal, therefore it was savaged without resection. At this time, deep cultures consisting of aerobic, anaerobic and fungal culture was performed and the specimen was transferred to the back table for pathology identification. At this time, all residual nonviable tissue was removed without incident. A pulse lavage with 100 mg of gentamicin was infiltrated into the affected site. Pulse lavage 1000 mL mixture. At this time, areas were inspected again. There was noted to be pain with flexion at the affected area. Therefore, 2 mm wedge was removed from the medial aspect of the right great toe and the toe was held in a rotated and derotated position while the plantar aspect of the first metatarsophalangeal joint was approximated with the dorsal aspect of the extensor tendon with 0 Ethibond. At this time, 3-0 Vicryl was also used to close the affected digit while the toe was held in a rotated position after removing skin tissue and reposition of the plantar flap. 4-0 Vicryl was also used to reapproximate the soft tissue followed by 3-0 Prolene with horizontal stitches. The area was then cleansed, bacitracin applied followed by Adaptic, sterile compressive dressing. The patient tolerated the procedure and anesthesia well and will be readmitted to room 373 with partial weightbearing to tolerance with a postop shoe. The patient will be seen by Dr. Ireland for dressing change within the next 48 hours. TID: [id number] RECEIPT: [id number] JUAN PABLO/LEODAN/MIREYA/MICHAEL MTDD
[2021-11-01] MEDS: HEPARIN 5,000 UNIT/1 ML VIAL SUB-Q SCH ×2 (09:20→21:42)
[2021-11-01] MEDS: metFORMIN 500 MG TAB PO SCH ×2 (09:20→16:04)
[2021-11-01] MEDS: LOSARTAN 25 MG TAB PO SCH (09:21)
[2021-11-01] MEDS: INSULIN LISPRO 100 UNIT/ML SUB-Q SCH ×4 (09:22→21:49)
[2021-11-01] MEDS: ACETAMINOPHEN 325 MG TAB PO PRN (15:50)
--- NOTE | 2021-11-01 15:58 | Progress Note ---
Assessment and Plan - Patient Problems (1) Sepsis Current Visit: Yes Status: Acute Qualifiers: Sepsis type: sepsis due to unspecified organism Plan to address problem: Continue Unasyn and vancomycin (2) Osteomyelitis of foot, right, acute Current Visit: Yes Status: Acute Plan to address problem: Patient antibiotics Podiatry consult appreciated Patient to get right great toe amputation (3) HTN (hypertension) Current Visit: Yes Status: Chronic Qualifiers: Hypertension type: primary hypertension Qualified Code(s): I10 - Essential (primary) hypertension Plan to address problem: Continue antihypertensives and adjust medications (4) T2DM (type 2 diabetes mellitus) Current Visit: Yes Status: Chronic Qualifiers: Diabetes mellitus retirement insulin use: unspecified retirement insulin 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 Patient is full code. +30 minutes. Subjective Date of service: 10/24/21 Principal diagnosis: Right foot osteomyelitis/sepsis Interval history: 66-year-old male with known history of hypertension and diabetes mellitus presenting to the emergency room today for evaluation of possible infected toe and elevated blood glucose. Patient states he had an injury to the right big toe few weeks ago which started to look infected. He has an upcoming appointment with his podiatristDr. Ireland. Patient was said to have been found in feces at home today. Patient indicated his blood sugar has been elevated at home. Work-up in the emergency room revealed leukocytosis of 24 sodium 132, BUN of 28 and creatinine 1.6. Glucose was 495. Chest x-ray shows age-indeterminate posterior ninth rib fracture basilar opacities favored to be atelectasis scarring. Although airspace disease may have similar appearance. X-ray of the right foot reveals bony destructive changes within the distal aspect of the great toe suggesting osteomyelitis. There is also bone marrow irregularity in the distal third toe. Sepsis. Patient meets criteria given the tachycardia, leukocytosis and diagnosis of osteomyelitis. Right big toe osteomyelitis/cellulitis. Diabetes mellitus type 2, uncontrolled Leukocytosis Hypertension. 10/26/2021. Check MRI of right foot. Await ID consultation. Follow-up blood cultures. Continue IV antibiotics. Continue SSRI and Accu-Cheks. Continue Lantus at bedtime. Check sed rate. 10/27/2021. Follow-up MRI of the right foot. ID consultation pending. Continue IV antibiotics. Tight glycemic control to promote healing. BG still remains elevated. Increase Lantus insulin. Follow-up sed rate 10/28/2021 Podiatry consult appreciated Patient to get right great toe amputation because of the osteomyelitis Right great toe ulcer still swollen 10/29/2021 Patient for right great toe amputation Podiatry consult appreciated Duplex scan heart-arterial negative Echocardiogram normal ejection fraction 10/30/2021 Podiatry requested for medical clearance and vascular surgery clearance Echo is normal Patient is medically cleared for right great toe amputation by Dr. Ireland--- hand roller 10/31/2021 Patient due for right great toe amputation this evening Objective - Constitutional Vitals: Vital Signs - 12hr 11/01/21 11/01/21 11/01/21 05:59 06:00 09:21 Temperature 98.2 F Pulse Rate 61 60 Respiratory 18 Rate Blood Pressure 162/78 155/71 O2 Sat by Pulse 94 Oximetry 11/01/21 09:25 Temperature Pulse Rate 60 Respiratory Rate Blood Pressure 155/71 O2 Sat by Pulse Oximetry General appearance: Present: no acute distress, well-nourished - EENT Eyes: PERRL, EOM intact ENT: hearing intact, clear oral mucosa Ears: bilateral: normal - Neck Neck: supple, normal ROM - Respiratory Respiratory effort: normal Respiratory: bilateral: CTA - Breasts Breasts: normal - Cardiovascular Heart rate: 78 Rhythm: regular Heart Sounds: Present: S1 & S2. Absent: gallop, rub Extremities: pulses intact, No edema, normal color, Full ROM, abnormal - Gastrointestinal General gastrointestinal: Present: soft, non-tender, non-distended, normal bowel sounds - Genitourinary Male genitourinary: normal - Integumentary Integumentary: clear, warm, dry - Musculoskeletal Musculoskeletal: 1, strength equal bilaterally - Neurologic Neurologic: moves all extremities - Psychiatric Psychiatric: memory intact, appropriate mood/affect, intact judgment & insight - Allied health notes Allied health notes reviewed: nursing, case management - Labs CBC & Chem 7: 10/27/21 04:37 10/29/21 04:27 Labs: Abnormal lab results 10/31/21 11/01/21 11/01/21 Range/Units 22:07 07:08 11:10 POC Glucose 176 H 159 H 255 H (70-105) mg/dL HEART Score - HEART Score Troponin: Troponin T < 0.010 ng/mL (0.00-0.029) 10/24/21 17:17
--- NOTE | 2021-11-01 16:03 | Progress Note ---
Assessment and Plan - Patient Problems (1) Sepsis Current Visit: Yes Status: Acute Qualifiers: Sepsis type: sepsis due to unspecified organism Plan to address problem: Continue Unasyn and vancomycin (2) Osteomyelitis of foot, right, acute Current Visit: Yes Status: Acute Plan to address problem: S/p right great toe amputation (3) HTN (hypertension) Current Visit: Yes Status: Chronic Qualifiers: Hypertension type: primary hypertension Qualified Code(s): I10 - Essential (primary) hypertension Plan to address problem: Continue antihypertensives and adjust medications (4) T2DM (type 2 diabetes mellitus) Current Visit: Yes Status: Chronic Qualifiers: Diabetes mellitus technician terminal and repeater insulin use: unspecified detention insulin 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 Patient is f ull code. +30 minutes. Subjective Date of service: 11/01/21 Principal diagnosis: Right foot osteomyelitis/sepsis Interval history: 66-year-old male with known history of hypertension and diabetes mellitus p resenting to the emergency room today for evaluation of possible infected toe and elevated blood glucose. Patient states he had an injury to the right big toe few weeks ago which started to look infected. He has an upcoming appointment with his podiatristDr. Ireland. Patient was said to have been found in feces at home today. Patient indicated his blood sugar has been elevated at home. Work-up in the emergency room revealed leukocytosis of 24 sodium 132, BUN of 28 and creatinine 1.6. Glucose was 495. Chest x-ray shows age-indeterminate posterior ninth rib fracture basilar opacities favored to be atelectasis scarring. Although airspace disease may have similar appearance. X-ray of the right foot reveals bony destructive changes within the distal aspect of the great toe suggesting osteomyelitis. There is also bone marrow irregularity in the distal third toe. Sepsis. Patient meets criteria given the tachycardia, leukocytosis and diagnosis of osteomyelitis. Right big toe osteomyelitis/cellulitis. Diabetes mellitus type 2, uncontrolled Leukocytosis Hypertension. 10/26/2021. Check MRI of right foot. Await ID consultation. Follow-up blood cultures. Continue IV antibiotics. Continue SSRI and Accu-Cheks. Continue Lantus at bedtime. Check sed rate. 10/27/2021. Follow-up MRI of the right foot. ID consultation pending. Continue IV antibiotics. Tight glycemic control to promote healing. BG still remains elevated. Increase Lantus insulin. Follow-up sed rate 10/28/2021 Podiatry consult appreciated Patient to get right great toe amputation because of the osteomyelitis Right great toe ulcer still swollen 10/29/2021 Patient for right great toe amputation Podiatry consult appreciated Duplex scan heart-arterial negative Echocardiogram normal ejection fraction 10/30/2021 Podiatry requested for medical clearance and vascular surgery clearance Echo is normal Patient is medically cleared for right great toe amputation by Dr. 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 consultant 10/31/2021 Patient due for right great toe amputation this evening 11/01/2021 Patient is s/p right great toe amputation Objective - Constitutional Vitals: Vital Signs - 12hr 11/01/21 11/01/21 11/01/21 05:59 06:00 09:21 Temperature 98.2 F Pulse Rate 61 60 Respiratory 18 Rate Blood Pressure 162/78 155/71 O2 Sat by Pulse 94 Oximetry 11/01/21 09:25 Temperature Pulse Rate 60 Respiratory Rate Blood Pressure 155/71 O2 Sat by Pulse Oximetry General appearance: Present: no acute distress, well-nourished - EENT Eyes: PERRL, EOM intact ENT: hearing intact, clear oral mucosa Ears: bilateral: normal - Neck Neck: supple, normal ROM - Respiratory Respiratory effort: normal Respiratory: bilateral: CTA - Breasts Breasts: normal - Cardiovascular Heart rate: 78 Rhythm: regular Heart Sounds: Present: S1 & S2. Absent: gallop, rub Extremities: pulses intact, No edema, normal color, Full ROM, abnormal (S/p right great toe amputation and dressing) - Gastrointestinal General gastrointestinal: Present: soft, non-tender, non-distended, normal bowel sounds - Genitourinary Male genitourinary: normal - Integumentary Integumentary: clear, warm, dry - Musculoskeletal Musculoskeletal: 1, strength equal bilaterally - Neurologic Neurologic: moves all extremities - Psychiatric Psychiatric: memory intact, appropriate mood/affect, intact judgment & insight - Labs CBC & Chem 7: 10/27/21 04:37 10/29/21 04:27 Labs: Abnormal lab results 10/31/21 11/01/21 11/01/21 Range/Units 22:07 07:08 11:10 POC Glucose 176 H 159 H 255 H (70-105) mg/dL HEART Score - HEART Score Troponin: Troponin T < 0.010 ng/mL (0.00-0.029) 10/24/21 17:17
[2021-11-01] MEDS: INSULIN GLARGINE 100 UNITS/ML SUB-Q SCH (21:48)
[2021-11-02 05:25] LABS: Basophils % (Auto) 0.4 % (0.0-1.8); Eosinophils # (Auto) 0.2 K/mm3 (0.0-0.4); Eosinophils % (Auto) 1.7 % (0.0-4.3); Hemoglobin 11.5 gm/dl (11.8-15.2); Lymphocytes # (Auto) 1.4 K/mm3 (1.2-5.4); Lymphocytes % (Auto) 15.1 % (13.4-35.0); Mean Corpuscular HGB Conc 34 % (32-34); Mean Corpuscular Volume 90 fl (84-94); Monocytes % (Auto) 11.1 % (0.0-7.3); Platelet Count 265 K/mm3 (140-440); Red Blood Count 3.78 M/mm3 (3.65-5.03); Red Cell Distribution Width 13.1 % (13.2-15.2)
[2021-11-02 05:42] LABS: Alanine Aminotransferase 9 units/L (7-56); BUN/Creatinine Ratio 14; Blood Urea Nitrogen 13 mg/dL (9-20); Calcium 9.6 mg/dL (8.4-10.2); Hemolysis Index 4
[2021-11-02] MEDS: INSULIN LISPRO 100 UNIT/ML SUB-Q SCH ×4 (08:06→22:50)
[2021-11-02] MEDS: metFORMIN 500 MG TAB PO SCH ×2 (08:29→18:01)
[2021-11-02] MEDS: INSULIN GLARGINE 100 UNITS/ML SUB-Q SCH ×2 (09:27→22:27)
[2021-11-02] MEDS: LOSARTAN 25 MG TAB PO SCH (09:27)
[2021-11-02] MEDS: HEPARIN 5,000 UNIT/1 ML VIAL SUB-Q SCH ×2 (09:29→22:29)
[2021-11-02] MEDS: SODIUM CHLORIDE 0.9% 1000 ML 1,000 ML IV SCH (14:08)
[2021-11-02] MEDS: ACETAMINOPHEN 325 MG TAB PO PRN (14:11)
--- NOTE | 2021-11-02 17:25 | Progress Note ---
Assessment and Plan - Patient Problems (1) Sepsis Current Visit: Yes Status: Acute Qualifiers: Sepsis type: sepsis due to unspecified organism Plan to address problem: Continue Unasyn and vancomycin (2) Osteomyelitis of foot, right, acute Current Visit: Yes Status: Acute Plan to address problem: S/p right great toe amputation IV Ancef for 6 weeks Case management arrange for outpatient IV antibiotics (3) HTN (hypertension) Current Visit: Yes Status: Chronic Qualifiers: Hypertension type: primary hypertension Qualified Code(s): I10 - Essential (primary) hypertension Plan to address problem: Continue antihypertensives and adjust medications (4) T2DM (type 2 diabetes mellitus) Current Visit: Yes Status: Chronic Qualifiers: Diabetes mellitus apartment maintenance insulin use: unspecified senior living insulin 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 Patient is full code. +30 minutes. Subjective Date of service: 11/02/21 Principal diagnosis: Right foot osteomyelitis/sepsis Interval history: 66-year-old male with known history of hypertension and diabetes mellitus presenting to the emergency room today for evaluation of possible infected toe and elevated blood glucose. Patient states he had an injury to the right big toe few weeks ago which started to look infected. He has an upcoming appointment with his podiatristDr. Ireland. Patient was said to have been found in feces at home today. Patient indicated his blood sugar has been elevated at home. Work-up in the emergency room revealed leukocytosis of 24 sodium 132, BUN of 28 and creatinine 1.6. Glucose was 495. Chest x-ray shows age-indeterminate posterior ninth rib fracture basilar opacities favored to be atelectasis scarring. Although airspace disease may have similar appearance. X-ray of the right foot reveals bony destructive changes within the distal aspect of the great toe suggesting osteomyelitis. There is also bone marrow irregularity in the distal third toe. Sepsis. Patient meets criteria given the tachycardia, leukocytosis and diagnosis of osteomyelitis. Right big toe osteomyelitis/cellulitis. Diabetes mellitus type 2, uncontrolled Leukocytosis Hypertension. 10/26/2021. Check MRI of right foot. Await ID consultation. Follow-up blood cultures. Continue IV antibiotics. Continue SSRI and Accu-Cheks. Continue Lantus at bedtime. Check sed rate. 10/27/2021. Follow-up MRI of the right foot. ID consultation pending. Continue IV antibiotics. Tight glycemic control to promote healing. BG still remains elevated. Increase Lantus insulin. Follow-up sed rate 10/28/2021 Podiatry consult appreciated Patient to get right great toe amputation because of the osteomyelitis Right great toe ulcer still swollen 10/29/2021 Patient for right great toe amputation Podiatry consult appreciated Duplex scan heart-arterial negative Echocardiogram normal ejection fraction 10/30/2021 Podiatry requested for medical clearance and vascular surgery clearance Echo is normal Patient is medically cleared for right great toe amputation by Dr. Ireland--- radio announcer 10/31/2021 Patient due for right great toe amputation this evening 11/01/2021 Patient is s/p right great toe amputation 11/02/2021 S/p right great toe amputation IV Ancef for 6 weeks Case management to arrange for outpatient IV Ancef Objective - Constitutional Vitals: Vital Signs - 12hr 11/02/21 11/02/21 11/02/21 09:27 09:28 11:04 Temperature Pulse Rate Respiratory Rate Blood Pressure 129/71 129/71 O2 Sat by Pulse 97 Oximetry 11/02/21 11/02/21 12:41 12:42 Temperature 97.8 F Pulse Rate 67 34 L Respiratory 18 Rate Blood Pressure 116/73 O2 Sat by Pulse 96 96 Oximetry General appearance: Present: no acute distress, well-nourished - EENT Eyes: PERRL, EOM intact ENT: hearing intact, clear oral mucosa Ears: bilateral: normal - Neck Neck: supple, normal ROM - Respiratory Respiratory effort: normal Respiratory: bilateral: CTA - Breasts Breasts: normal - Cardiovascular Heart rate: 72 Rhythm: regular Heart Sounds: Present: S1 & S2. Absent: gallop, rub Extremities: pulses intact, No edema, normal color, Full ROM, abnormal (S/p right great toe amputation. Right foot in dressing) Extremity abnormal: other (As above) - Gastrointestinal General gastrointestinal: Present: soft, non-tender, non-distended, normal bowel sounds - Genitourinary Male genitourinary: normal - Integumentary Integumentary: clear, warm, dry - Musculoskeletal Musculoskeletal: 1, strength equal bilaterally - Neurologic Neurologic: moves all extremities - Psychiatric Psychiatric: memory intact, appropriate mood/affect, intact judgment & insight - Labs CBC & Chem 7: 11/02/21 04:17 11/02/21 04:17 Labs: Abnormal lab results 11/01/21 11/02/21 11/02/21 Range/Units 21:39 04:17 04:17 Hgb 11.5 L (11.8-15.2) gm/dl Hct 34.0 L (35.5-45.6) % RDW 13.1 L (13.2-15.2) % [place] % (Auto) 11.1 H (0.0-7.3) % [place] # (Auto) 1.0 H (0.0-0.8) K/mm3 Seg Neutrophils % 71.7 H (40.0-70.0) % Glucose 131 H (75-100) mg/dL POC Glucose 242 H (70-105) mg/dL Albumin 3.0 L (3.9-5) g/dL 11/02/21 11/02/21 11/02/21 Range/Units 07:33 11:05 16:05 Hgb (11.8-15.2) gm/dl Hct (35.5-45.6) % RDW (13.2-15.2) % [place] % (Auto) (0.0-7.3) % [place] # (Auto) (0.0-0.8) K/mm3 Seg Neutrophils % (40.0-70.0) % Glucose (75-100) mg/dL POC Glucose 111 H 224 H 126 H (70-105) mg/dL Albumin (3.9-5) g/dL HEART Score - HEART Score Troponin: Troponin T < 0.010 ng/mL (0.00-0.029) 10/24/21 17:17
--- NOTE | 2021-11-03 01:03 | Consultation ---
DATE OF CONSULTATION: 11/01/2021 HISTORY OF PRESENT ILLNESS: The patient was seen at bedside. Chart was reviewed. The patient appeared to be stable, alert and oriented x3. The patient presented with postop shoe on in bed without acute distress. Appeared to be no breakthrough and bandages noted. OBJECTIVE FINDINGS: Dressings appeared to be intact. The patient is day #1 status post surgical debridement and partial amputation of right great toe with primary closure and rotational flap. The patient is afebrile. X-rays reviewed. Mild soft tissue changes with swelling at the affected toe with evaluation and toe appears to be perfused, appears to be pink, mild bleeding at the surgical site; however, sutures are intact, no odor present. ASSESSMENT: Status post partial amputation with debridement of right great toe rotational flap. PLAN: The patient will be followed by Dr. Ireland for bandage change. However, from podiatric perspective, the patient is okay to be discharged home and will follow up with Dr. Ireland 3 days status post discharge. The patient can weightbear with postop shoe. However, recommended to nurse, CINDI Palomares on the floor a pillow need to be placed proximal to the heel to offload the foot and postop shoe. However, the patient is not discharged. Dr. Ireland will change bandages on 11/04/2021. Any additional communication with Dr. Ireland you can reach at my office at [phone] or cell is [phone]. TID: [id number] RECEIPT: [id number] JUAN PABLO/FREDDIE
--- NOTE | 2021-11-03 06:14 | Progress Note ---
Assessment and Plan - Patient Problems (1) Sepsis Current Visit: Yes Status: Acute Qualifiers: Sepsis type: sepsis due to unspecified organism Plan to address problem: Continue Ancef 2 g IV piggyback daily dose Patient will be discharged on Ancef for 6 weeks IV Case management consult (2) Osteomyelitis of foot, right, acute Current Visit: Yes Status: Acute Plan to address problem: S/p right great toe amputation IV Ancef for 6 weeks Case management to arrange for outpatient IV antibiotics (3) HTN (hypertension) Current Visit: Yes Status: Chronic Qualifiers: Hypertension type: primary hypertension Qualified Code(s): I10 - Essential (primary) hypertension Plan to address problem: Continue antihypertensives and adjust medications (4) T2DM (type 2 diabetes mellitus) Current Visit: Yes Status: Chronic Qualifiers: Diabetes mellitus longterm insulin use: unspecified longterm insulin use status Plan to address problem: Blood glucose levels are improved (5) DVT prophylaxis Current Visit: Yes Status: Acute Plan to address problem: On anticoagulation GI prophylaxis (6) Advance care planning Current Visit: Yes Status: Acute Plan to address problem: Disease education conducted, care plan discussed, diagnosis discussed, prognosis discussed, and patient acknowledged understanding with care plan. Patient is full code. +30 minutes. Subjective Date of service: 11/02/21 Principal diagnosis: Right foot osteomyelitis/sepsis Interval history: 66-year-old male with known history of hypertension and diabetes mellitus presenting to the emergency room today for evaluation of possible infected toe and elevated blood glucose. Patient states he had an injury to the right big toe few weeks ago which started to look infected. He has an upcoming appointmen t with his podiatristDr. Ireland. Patient was said to have been found in feces at home today. Patient indicated his blood sugar has been elevated at home. Work-up in the emergency room revealed leukocytosis of 24 sodium 132, BUN of 28 and creatinine 1.6. Glucose was 495. Chest x-ray shows age-indeterminate posterior ninth rib fracture basilar opacities favored to be atelectasis scarring. Although airspace disease may have similar appearance. X-ray of the right foot reveals bony destructive changes within the distal aspect of the great toe suggesting osteomyelitis. There is also bone marrow irregularity in the distal third toe. Sepsis. Patient meets criteria given the tachycardia, leukocytosis and diagnosis of osteomyelitis. Right big toe osteomyelitis/cellulitis. Diabetes mellitus type 2, uncontrolled Leukocytosis Hypertension. 10/26/2021. Check MRI of right foot. Await ID consultation. Follow-up blood cultures. Continue IV antibiotics. Continue SSRI and Accu-Cheks. Continue Lantus at bedtime. Check sed rate. 10/27/2021. Follow-up MRI of the right foot. ID consultation pending. Continue IV antibiotics. Tight glycemic control to promote healing. BG still remains elevated. Increase Lantus insulin. Follow-up sed rate 10/28/2021 Podiatry consult appreciated Patient to get right great toe amputation because of the osteomyelitis Right great toe ulcer still swollen 10/29/2021 Patient for right great toe amputation Podiatry consult appreciated Duplex scan heart-arterial negative Echocardiogram normal ejection fraction 10/30/2021 Podiatry requested for medical clearance and vascular surgery clearance Echo is normal Patient is medically cleared for right great toe amputation by Dr. Ireland--- dev manager 10/31/2021 Patient due for right great toe amputation this evening 11/01/2021 Patient is s/p right great toe amputation 11/02/2021 S/p right great toe amputation IV Ancef for 6 weeks Case management to arrange for outpatient IV Ancef Objective - Constitutional Vitals: Vital Signs - 12hr 11/02/21 11/02/21 11/02/21 21:14 22:28 22:39 Temperature 99.6 F Pulse Rate 67 68 Respiratory 16 16 Rate Blood Pressure 139/73 139/73 O2 Sat by Pulse 97 98 Oximetry 11/03/21 04:34 Temperature 98.7 F Pulse Rate 60 Respiratory 16 Rate Blood Pressure 150/77 O2 Sat by Pulse 97 Oximetry General appearance: Present: no acute distress, well-nourished - EENT Eyes: PERRL, EOM intact ENT: hearing intact, clear oral mucosa Ears: bilateral: normal - Neck Neck: supple, normal ROM - Respiratory Respiratory effort: normal Respiratory: bilateral: CTA - Breasts Breasts: normal - Cardiovascular Heart rate: 78 Rhythm: regular Heart Sounds: Present: S1 & S2. Absent: gallop, rub Extremities: pulses intact, No edema, normal color, Full ROM, abnormal (S/p right great toe amputation) Extremity abnormal: other (S/p right great toe amputation for osteomyelitis) - Gastrointestinal General gastrointestinal: Present: soft, non-tender, non-distended, normal bowel sounds - Genitourinary Male genitourinary: normal - Integumentary Integumentary: clear, warm, dry - Musculoskeletal Musculoskeletal: 1, strength equal bilaterally - Neurologic Neurologic: moves all extremities - Psychiatric Psychiatric: memory intact, appropriate mood/affect, intact judgment & insight - Labs CBC & Chem 7: 11/02/21 04:17 11/02/21 04:17 Labs: Abnormal lab results 11/02/21 11/02/21 11/02/21 Range/Units 07:33 11:05 16:05 POC Glucose 111 H 224 H 126 H (70-105) mg/dL 11/02/21 Range/Units 21:12 POC Glucose 161 H (70-105) mg/dL HEART Score - HEART Score Troponin: Troponin T < 0.010 ng/mL (0.00-0.029) 10/24/21 17:17
[2021-11-03] MEDS: metFORMIN 500 MG TAB PO SCH ×2 (08:28→17:58)
[2021-11-03] MEDS: INSULIN LISPRO 100 UNIT/ML SUB-Q SCH ×4 (08:28→23:06)
[2021-11-03] MEDS: D5W/0.9% NACL 1,000 ML IV SCH (09:08)
[2021-11-03] MEDS: LOSARTAN 25 MG TAB PO SCH (10:30)
[2021-11-03] MEDS: INSULIN GLARGINE 100 UNITS/ML SUB-Q SCH ×2 (10:35→23:06)
[2021-11-03] MEDS: HEPARIN 5,000 UNIT/1 ML VIAL SUB-Q SCH ×2 (10:40→21:27)
[2021-11-03] MEDS ORDERED: SODIUM CHLORIDE 0.9% 1000 ML 1,000 ML ONE (10:49)
[2021-11-03] MEDS ORDERED: BENZOCAINE 20% TOP SPRAY 0.5 ML UNIT DOSE MM ONE (11:47)
[2021-11-03] MEDS ORDERED: LIDOCAINE MPF (2%) 20 MG/1 ML VIAL 5 ML ONE (12:05)
[2021-11-03] MEDS ORDERED: propofoL 200 MG/20 ML VIAL IV ONE ×3 (12:05→12:06)
[2021-11-03] MEDS ORDERED: ePHEDrine SULFATE 50 MG/1 ML INJ ONE (12:06)
[2021-11-03] MEDS ORDERED: BENZOCAINE 20% TOP SPRAY 0.5 ML UNIT DOSE MM NR (12:13)
--- NOTE | 2021-11-03 13:28 | Anesthesia Day of Surgery ---
Anesthesia Day of Surgery - Day of Surgery Patient Examined: Yes Patient H&P Reviewed: Yes Patient is NPO: Yes
--- NOTE | 2021-11-03 13:30 | Post Anesthesia Evaluation ---
- Post Anesthesia Evaluation Patient Participated: Yes Airway Patent: Yes Stable Respiratory Function: Yes Nausea/Vomiting: No Temp > 96.8F: Yes Pain Manageable: Yes Adequeate Hydration: Yes Anesthesia Complications: No
--- NOTE | 2021-11-03 19:52 | Progress Note ---
Assessment and Plan - Patient Problems (1) Sepsis Current Visit: Yes Status: Acute Qualifiers: Sepsis type: sepsis due to unspecified organism Plan to address problem: Resolved (2) Osteomyelitis of foot, right, acute Current Visit: Yes Status: Acute Plan to address problem: Infectious disease service consulted. Patient pending discharge on home IV antibiotics as per infectious disease service recommendations. (3) HTN (hypertension) Current Visit: Yes Status: Chronic Qualifiers: Hypertension type: primary hypertension Qualified Code(s): I10 - Essential (primary) hypertension Plan to address problem: Monitor blood pressure every shift, continue medical management. (4) DVT prophylaxis Current Visit: Yes Status: Acute Plan to address problem: SCD to bilateral lower extremities while in bed (5) Advance care planning Current Visit: Yes Status: Acute Plan to address problem: Disease education conducted, care plan discussed, diagnoses discussed, prognosis discussed. Patient knowledges understanding and agreement with care plan, +30 minutes. (6) Preventative health care Current Visit: Yes Status: Acute Plan to address problem: Patient counseled regarding home safety, patient follow-up with primary care physician for all age and risk factor appropriate screening test. +30 minutes. History Interval history: 66-year-old male hospital day 10 with sepsis, osteomyelitis pending discharge on outpatient antibiotic therapy. Patient resting company. Patient sitting on side of the bed. Patient denies pain. No reported nursing events. Case management consulted. Hospitalist Physical - Constitutional Vitals: Temp Pulse Resp BP Pulse Ox 98.7 F 62 17 157/75 98 11/03/21 04:34 11/03/21 13:15 11/03/21 13:15 11/03/21 13:15 11/03/21 13:15 General appearance: Present: no acute distress, well-nourished - EENT Eyes: Present: PERRL ENT: hearing intact - Neck Neck: Present: supple - Respiratory Respiratory effort: normal Respiratory: bilateral: CTA - Cardiovascular Rhythm: regular Heart Sounds: Present: S1 & S2 - Extremities Extremity abnormal: edema, erythema Peripheral Pulses: within normal limits - Abdominal General gastrointestinal: soft, non-tender, non-distended - Integumentary Integumentary: Present: clear, dry - Psychiatric Psychiatric: appropriate mood/affect, cooperative - Neurologic Neurologic: CNII-XII intact HEART Score - HEART Score Troponin: Troponin T < 0.010 ng/mL (0.00-0.029) 10/24/21 17:17 Results - Labs CBC & Chem 7: 11/02/21 04:17 11/02/21 04:17 Labs: Laboratory Last Values WBC 9.1 K/mm3 (4.5-11.0) 11/02/21 04:17 RBC 3.78 M/mm3 (3.65-5.03) 11/02/21 04:17 Hgb 11.5 gm/dl (11.8-15.2) L 11/02/21 04:17 Hct 34.0 % (35.5-45.6) L 11/02/21 04:17 MCV 90 fl (84-94) 11/02/21 04:17 MCH 30 pg (28-32) 11/02/21 04:17 MCHC 34 % (32-34) 11/02/21 04:17 RDW 13.1 % (13.2-15.2) L 11/02/21 04:17 Plt Count 265 K/mm3 (140-440) 11/02/21 04:17 Lymph % (Auto) 15.1 % (13.4-35.0) 11/02/21 04:17 [place] % (Auto) 11.1 % (0.0-7.3) H 11/02/21 04:17 Eos % (Auto) 1.7 % (0.0-4.3) 11/02/21 04:17 Baso % (Auto) 0.4 % (0.0-1.8) 11/02/21 04:17 Lymph # (Auto) 1.4 K/mm3 (1.2-5.4) 11/02/21 04:17 [place] # (Auto) 1.0 K/mm3 (0.0-0.8) H 11/02/21 04:17 Eos # (Auto) 0.2 K/mm3 (0.0-0.4) 11/02/21 04:17 Baso # (Auto) 0.0 K/mm3 (0.0-0.1) 11/02/21 04:17 Add Manual Diff Complete 10/24/21 17:17 Total Counted 100 10/24/21 17:17 Seg Neutrophils % 71.7 % (40.0-70.0) H 11/02/21 04:17 Seg Neuts % (Manual) 82.0 % (40.0-70.0) H 10/24/21 17:17 Band Neutrophils % 6.0 % 10/24/21 17:17 Lymphocytes % (Manual) 5.0 % (13.4-35.0) L 10/24/21 17:17 Reactive Lymphs % (Man) 0 % 10/24/21 17:17 Monocytes % (Manual) 6.0 % (0.0-7.3) 10/24/21 17:17 Eosinophils % (Manual) 0 % (0.0-4.3) 10/24/21 17:17 Basophils % (Manual) 0 % (0.0-1.8) 10/24/21 17:17 Metamyelocytes % 0 % 10/24/21 17:17 Myelocytes % 1.0 % 10/24/21 17:17 Promyelocytes % 0 % 10/24/21 17:17 Blast Cells % 0 % 10/24/21 17:17 Nucleated RBC % Not Reportable 10/24/21 17:17 Seg Neutrophils # 6.5 K/mm3 (1.8-7.7) 11/02/21 04:17 Seg Neutrophils # Man 16.8 K/mm3 (1.8-7.7) H 10/24/21 17:17 Band Neutrophils # 1.2 K/mm3 10/24/21 17:17 Lymphocytes # (Manual) 1.0 K/mm3 (1.2-5.4) L 10/24/21 17:17 Abs React Lymphs (Man) 0.0 K/mm3 10/24/21 17:17 Monocytes # (Manual) 1.2 K/mm3 (0.0-0.8) H 10/24/21 17:17 Eosinophils # (Manual) 0.0 K/mm3 (0.0-0.4) 10/24/21 17:17 Basophils # (Manual) 0.0 K/mm3 (0.0-0.1) 10/24/21 17:17 Metamyelocytes # 0.0 K/mm3 10/24/21 17:17 Myelocytes # 0.2 K/mm3 10/24/21 17:17 Promyelocytes # 0.0 K/mm3 10/24/21 17:17 Blast Cells # 0.0 K/mm3 10/24/21 17:17 WBC Morphology Not Reportable 10/24/21 17:17 Hypersegmented Neuts Not Reportable 10/24/21 17:17 Hyposegmented Neuts Not Reportable 10/24/21 17:17 Hypogranular Neuts Not Reportable 10/24/21 17:17 Smudge Cells Not Reportable 10/24/21 17:17 Toxic Granulation Not Reportable 10/24/21 17:17 Toxic Vacuolation Not Reportable 10/24/21 17:17 Dohle Bodies Not Reportable 10/24/21 17:17 Pelger-Huet Anomaly Not Reportable 10/24/21 17:17 Edgardo Rods Not Reportable 10/24/21 17:17 Platelet Estimate Consistent w auto 10/24/21 17:17 Clumped Platelets Not Reportable 10/24/21 17:17 Plt Clumps, EDTA Not Reportable 10/24/21 17:17 Large Platelets Not Reportable 10/24/21 17:17 Giant Platelets Not Reportable 10/24/21 17:17 Platelet Satelliting Not Reportable 10/24/21 17:17 Plt Morphology Comment Not Reportable 10/24/21 17:17 RBC Morphology Normal 10/24/21 17:17 Dimorphic RBCs Not Reportable 10/24/21 17:17 Polychromasia Not Reportable 10/24/21 17:17 Hypochromasia Not Reportable 10/24/21 17:17 Poikilocytosis Not Reportable 10/24/21 17:17 Anisocytosis Not Reportable 10/24/21 17:17 Microcytosis Not Reportable 10/24/21 17:17 Macrocytosis Not Reportable 10/24/21 17:17 Spherocytes Not Reportable 10/24/21 17:17 Pappenheimer Bodies Not Reportable 10/24/21 17:17 Sickle Cells Not Reportable 10/24/21 17:17 Target Cells Not Reportable 10/24/21 17:17 Tear Drop Cells Not Reportable 10/24/21 17:17 Ovalocytes Not Reportable 10/24/21 17:17 Helmet Cells Not Reportable 10/24/21 17:17 [place] Bodies Not Reportable 10/24/21 17:17 [place] Rings Not Reportable 10/24/21 17:17 [place] Cells Not Reportable 10/24/21 17:17 Bite Cells Not Reportable 10/24/21 17:17 Crenated Cell Not Reportable 10/24/21 17:17 Elliptocytes Not Reportable 10/24/21 17:17 Acanthocytes (Spur) Not Reportable 10/24/21 17:17 Rouleaux Not Reportable 10/24/21 17:17 Hemoglobin C Crystals Not Reportable 10/24/21 17:17 Schistocytes Not Reportable 10/24/21 17:17 Malaria parasites Not Reportable 10/24/21 17:17 ESR 56 mm/Hr (0-20) 10/26/21 04:50 [place] Bodies Not Reportable 10/24/21 17:17 Hem Pathologist Commnt No 10/24/21 17:17 Sodium 139 mmol/L (137-145) 11/02/21 04:17 Potassium 3.6 mmol/L (3.6-5.0) 11/02/21 04:17 Chloride 102.4 mmol/L (98-107) 11/02/21 04:17 Carbon Dioxide 24 mmol/L (22-30) 11/02/21 04:17 Anion Gap 16 mmol/L 11/02/21 04:17 BUN 13 mg/dL (9-20) 11/02/21 04:17 Creatinine 0.9 mg/dL (0.8-1.3) 11/02/21 04:17 Estimated GFR > 60 ml/min 11/02/21 04:17 BUN/Creatinine Ratio 14 % 11/02/21 04:17 Glucose 131 mg/dL (75-100) H 11/02/21 04:17 POC Glucose 172 mg/dL (70-105) H 11/03/21 17:09 Lactic Acid 1.50 mmol/L (0.7-2.0) 10/24/21 21:03 Calcium 9.6 mg/dL (8.4-10.2) 11/02/21 04:17 Total Bilirubin 0.30 mg/dL (0.1-1.2) 11/02/21 04:17 AST 13 units/L (5-40) 11/02/21 04:17 ALT 9 units/L (7-56) 11/02/21 04:17 Alkaline Phosphatase 60 units/L (35-129) 11/02/21 04:17 Troponin T < 0.010 ng/mL (0.00-0.029) 10/24/21 17:17 Total Protein 6.8 g/dL (6.3-8.2) 11/02/21 04:17 Albumin 3.0 g/dL (3.9-5) L 11/02/21 04:17 Albumin/Globulin Ratio 0.8 % 11/02/21 04:17 Urine Color Yellow (Yellow) 10/25/21 15:50 Urine Turbidity Slightly-cloudy (Clear) 10/25/21 15:50 Urine pH 5.0 (5.0-7.0) 10/25/21 15:50 Ur Specific Sophia 1.021 (1.003-1.030) 10/25/21 15:50 Urine Protein 100 mg/dl mg/dL (Negative) 10/25/21 15:50 Urine Glucose (UA) >=500 mg/dL (Negative) 10/25/21 15:50 Urine Ketones Neg mg/dL (Negative) 10/25/21 15:50 Urine Blood Mod (Negative) 10/25/21 15:50 Urine Nitrite Neg (Negative) 10/25/21 15:50 Urine Bilirubin Neg (Negative) 10/25/21 15:50 Urine Urobilinogen < 2.0 mg/dL (<2.0) 10/25/21 15:50 Ur Leukocyte Esterase Neg (Negative) 10/25/21 15:50 Urine WBC (Auto) 3.0 /HPF (0.0-6.0) 10/25/21 15:50 Urine RBC (Auto) 3.0 /HPF (0.0-6.0) 10/25/21 15:50 U Epithel Cells (Auto) 1.0 /HPF (0-13.0) 10/25/21 15:50 Urine Mucus Few /HPF 10/25/21 15:50 Vancomycin Trough 13.3 ug/mL (5.0-20.0) 10/28/21 00:05 Microbiology: Microbiology 10/31/21 Unknown Toe - Right Big Surgical Culture - Preliminary 10/24/21 17:17 Peripheral/Venous Blood Culture - Final Staphylococcus Aureus Bacillus Species 10/28/21 17:54 Peripheral/Venous Blood Culture - Final NO GROWTH AFTER 5 DAYS 10/28/21 17:54 Peripheral/Venous Blood Culture - Final NO GROWTH AFTER 5 DAYS Gonzalez/IV: Voiding Method Urinal Active Medications - Current Medications Current Medications: Generic Name Dose Route Start Last Admin Trade Name Freq PRN Reason Stop Dose Admin Acetaminophen 650 mg 10/25/21 00:19 11/02/21 14:11 Acetaminophen 325 Mg Tab PO 650 mg Q6H PRN Administration Pain MILD(1-3)/Fever >100.5/ANDRE Benzocaine 3 spray 11/03/21 12:13 Benzocaine 20% Top Minerva 0.5 Ml Unit Dose MM 11/03/21 23:59 PREOP NR Dextrose 0 ml 10/25/21 00:19 11/03/21 08:28 Dextrose 50% In Water (25gm) 50 Ml Syringe IV 25 ml Q30MIN PRN Administration Hypoglycemia Protocol Heparin Sodium (Porcine) 5,000 unit 10/29/21 22:00 11/03/21 10:40 Heparin 5,000 Unit/1 Ml Vial SUB-Q 5,000 unit Q12HR IAM Administration Cefazolin Sodium 2 gm/ Sodium 100 mls @ 200 mls/hr 10/31/21 14:00 11/03/21 14:35 Chloride IV 200 mls/hr Q8HR IAM Administration Protocol Dextrose/Sodium Chloride 1,000 mls @ 50 mls/hr 11/03/21 09:00 11/03/21 09:08 D5ns IV 50 mls/hr DIRECT IAM Administration Insulin Glargine 36 units 10/29/21 22:00 11/02/21 22:27 Insulin Glargine 100 Units/Ml SUB-Q 36 units QHS IAM Administration Insulin Human Lispro 0 unit 10/25/21 07:30 11/03/21 17:58 Insulin Lispro 100 Unit/Ml SUB-Q 3 unit ACHS IAM Administration Protocol Losartan Potassium 25 mg 10/30/21 10:00 11/03/21 10:30 Losartan 25 Mg Tab PO 25 mg QDAY IAM Administration Magnesium Hydroxide 30 ml 10/25/21 00:19 Magnesium Hydroxide (Mom) Oral Liqd Udc PO Q4H PRN Constipation Metformin HCl 500 mg 10/30/21 17:00 11/03/21 17:58 Metformin 500 Mg Tab PO 500 mg BIDDIAB IAM Administration Morphine Sulfate 2 mg 10/25/21 00:19 Morphine 2 Mg/1 Ml Inj IV Q4H PRN Pain, Moderate (4-6) Morphine Sulfate 4 mg 10/25/21 00:19 Morphine 4 Mg/1 Ml Inj IV Q4H PRN Pain , Severe (7-10) Ondansetron HCl 4 mg 10/25/21 00:19 Ondansetron 4 Mg/2 Ml Inj IV Q8H PRN Nausea And Vomiting Sodium Chloride 10 ml 10/25/21 10:00 11/03/21 10:35 Sodium Chloride 0.9% 10 Ml Flush Syringe IV 10 ml BID IAM Administration Sodium Chloride 10 ml 10/25/21 00:19 Sodium Chloride 0.9% 10 Ml Flush Syringe IV PRN PRN LINE FLUSH Sotalol HCl 120 mg 10/29/21 22:00 11/03/21 10:30 Sotalol 80 Mg Tab PO 120 mg Q12HR IAM Administration Nutrition/Malnutrition Assess - Dietary Evaluation Nutrition/Malnutrition Findings: Nutrition Notes Start: 10/25/21 08:28 Freq: Status: Active Protocol: Document 10/30/21 18:27 PATTY (Rec: 10/30/21 18:49 PATTY [id number]) Nutrition Notes Initial or Follow up Assessment Current Diagnosis Coronary Artery Disease, Diabetes,Sepsis,Hypertension Other Pertinent Diagnosis R-Great Toe Osteomyelitis, Bacteremia, PVD. Current Diet Cardiac/Consistent Carbohydrates Diet (since B ). Labs/Tests 10/29: Glu 121. Pertinent Medications 10/30: Lantus 36U, Humalog 3U, nutritionally unremarkable. Height 5 ft 10 in Weight 79.832 kg [place] Body Weight (kg) 75.45 BMI 25.2 Intake Prior to Admission Good Weight change and time frame Pt denies having loss body weight [employer]TER[employer]. 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 Pt's PO intake of meals has been Good (75-100%) and well tolerated, according to ADL notes. Pt is on Room Air, O2 saturation @ 98%, according to Physical Assessment History notes. Pt still in critical condition , not a candidate for Nutrition Education at the time, will assess feasibility on F/U. Percent of energy/protein needs met: Prescribed Cardiac/Consistent Carbohydrates Diet provides for energy/protein needs (1, 977 Kcal/86 g) during LOS. Burn Absent Trauma Absent GI Symptoms None Food Allergy No Skin Integrity/Comment Assessment WNL. Current % PO Good (75-100%) Minimum of two criteria No Fluid Accumulation N/A Reduced Handstitching Machine Armhole Feller Strength N/A (non-severe) Protein-Calorie Malnutrition N\A #1 Nutrition Diagnosis No nutrition diagnosis at this time Is patient on ventilator? No Is Patient Ambulatory and/or Out of Bed Yes REE-([facility]-ambulatory/OOB) [ [id number] [id number]] Calculation Used for Recommendations [facility] Additional Notes Protein: 1-1.2 g/Kg ABW; 80-96 g/day. Fluids: 1 ml/Kcal, or as per MD. Nutrition Intervention Change Diet Order: Continue Cardiac/Consistent Carbohydrates Diet. Follow-Up By: 11/06/21 Additional Comments Nutrition education will be provided at F/U, if feasible. Continue monitoring food tolerance, %PO intake of meals , and BM.
[2021-11-04] MEDS: INSULIN LISPRO 100 UNIT/ML SUB-Q SCH ×4 (08:21→22:44)
[2021-11-04] MEDS: LOSARTAN 25 MG TAB PO SCH (09:17)
[2021-11-04] MEDS: HEPARIN 5,000 UNIT/1 ML VIAL SUB-Q SCH ×2 (09:17→22:41)
[2021-11-04] MEDS: metFORMIN 500 MG TAB PO SCH ×2 (09:17→17:07)
--- NOTE | 2021-11-04 10:39 | Progress Note ---
Assessment and Plan Cultures: 10/24/2021 blood culture: Bacillus species, MSSA 10/28/2021 blood culture: No growth A/P: 66-year-old male with diabetes, hypertension, CAD, bioprosthetic valve, prior history of toe osteomyelitis requiring IV antibiotics via PICC line, follows regularly with his seo assistant Dr. Ireland who has performed multiple surgeries on both his feet was admitted to the hospital after he fell at home due to weakness, blood sugars were getting out of control and right foot great toe started to swell up with redness: #Sepsis, secondary to right great toe cellulitis, underlying osteomyelitis: toe with significant swelling, x-ray with bony destructive change. MRI right foot without contrast showed acute osteomyelitis of the first toe distal and proximal phalanges with septic arthritis of the first IP joint and loculated abscess along the dorsal aspect of the first toe metatarsal, moderate cellulitis. #MSSA bacteremia bacteremia: Likely due to above. TTE showed increased echogenicity of the aortic valve annulus. Due to indwelling bioprosthetic valve, recommend [place], planned for Wednesday. #Peripheral vascular disease: Arterial studies showed mild arthrosclerotic dis ease as well as monophasic flow at the ankle on the right. Vascular evaluated, no interventions planned. #Diabetes mellitus uncontrolled #Bacillus bacteremia: Likely contaminant Recs: -plan for total 6 weeks of IV Ancef -Case management consulted for Ancef 2 g every 8 hours until 12/09/2021 -Okay for PICC line on discharge Severo Mena MD [facility] ([facility]) O: [phone] F: [phone] Subjective Date of service: 11/04/21 Principal diagnosis: Right foot osteomyelitis/sepsis Interval history: Afebrile, normal white count. No new issues. Objective - Exam Narrative Exam: Physical Exam: Constitutional: Alert, cooperative. No acute distress Head, Ears, Nose: Normocephalic, atraumatic. Eyes: Conjunctivae/corneas clear. No icterus. No ptosis. Neck: Supple, no meningeal signs Cardiovascular: S1, S2 + Respiratory: Good air entry, clear to auscultation bilaterally GI: Soft, non-tender; bowel sounds normal. No peritoneal signs Musculoskeletal: Right great toe with swelling, erythema. Third toe with evidence of prior surgery Skin: No rash or abscess Hem/Lymphatic: No palpable cervical or supraclavicular nodes. No lymphangitis Psych: Mood ok. Affect normal Neurological: Awake, alert, oriented. No gross abnormality - Constitutional Vitals: Vital Signs Temp Pulse Resp BP Pulse Ox 99.6 F 68 20 160/74 98 11/03/21 23:14 11/03/21 23:14 11/03/21 23:14 11/03/21 23:14 11/04/21 08:16 Temperature -Last 24 Hours Temperature 99.6 F Temperature 97.4 F - Labs CBC & Chem 7: 11/02/21 04:17 11/02/21 04:17 Labs: Abnormal lab results 11/03/21 11/03/21 11/04/21 Range/Units 17:09 21:41 07:19 POC Glucose 172 H 181 H 116 H (70-105) mg/dL
--- NOTE | 2021-11-04 20:32 | Progress Note ---
Assessment and Plan - Patient Problems (1) Sepsis Current Visit: Yes Status: Acute Qualifiers: Sepsis type: sepsis due to unspecified organism Plan to address problem: Resolved (2) Osteomyelitis of foot, right, acute Current Visit: Yes Status: Acute Plan to address problem: Infectious disease service consulted. Patient pending discharge on home IV antibiotics as per infectious disease service recommendations. (3) HTN (hypertension) Current Visit: Yes Status: Chronic Qualifiers: Hypertension type: primary hypertension Qualified Code(s): I10 - Essential (primary) hypertension Plan to address problem: Monitor blood pressure every shift, continue medical management. (4) DVT prophylaxis Current Visit: Yes Status: Acute Plan to address problem: SCD to bilateral lower extremities while in bed (5) Advance care planning Current Visit: Yes Status: Acute Plan to address problem: Disease education conducted, care plan discussed, diagnoses discussed, prognosis discussed. Patient knowledges understanding and agreement with care plan, +30 minutes. (6) Preventative health care Current Visit: Yes Status: Acute Plan to address problem: Patient counseled regarding home safety, patient follow-up with primary care physician for all age and risk factor appropriate screening test. +30 minutes. History Interval history: 66-year-old male hospital day 11 with resolved sepsis, osteomyelitis pending discharge on outpatient antibiotic therapy. Patient resting company. Patient sitting on side of the bed. Patient denies pain. No reported nursing events. Case management consulted. Hospitalist Physical - Constitutional Vitals: Temp Pulse Resp BP Pulse Ox 98.7 F 73 20 142/76 99 11/04/21 16:45 11/04/21 16:45 11/04/21 16:45 11/04/21 16:45 11/04/21 16:45 General appearance: Present: no acute distress, well-nourished - EENT Eyes: Present: PERRL, EOM intact ENT: hearing intact - Neck Neck: Present: supple - Respiratory Respiratory effort: normal Respiratory: bilateral: CTA - Cardiovascular Rhythm: regular Heart Sounds: Present: S1 & S2 - Extremities Extremities: no ischemia Extremity abnormal: edema Peripheral Pulses: within normal limits - Abdominal General gastrointestinal: soft, non-tender, non-distended - Integumentary Integumentary: Present: clear, dry - Psychiatric Psychiatric: cooperative - Neurologic Neurologic: CNII-XII intact HEART Score - HEART Score Troponin: Troponin T < 0.010 ng/mL (0.00-0.029) 10/24/21 17:17 Results - Labs CBC & Chem 7: 11/02/21 04:17 11/02/21 04:17 Labs: Laboratory Last Values WBC 9.1 K/mm3 (4.5-11.0) 11/02/21 04:17 RBC 3.78 M/mm3 (3.65-5.03) 11/02/21 04:17 Hgb 11.5 gm/dl (11.8-15.2) L 11/02/21 04:17 Hct 34.0 % (35.5-45.6) L 11/02/21 04:17 MCV 90 fl (84-94) 11/02/21 04:17 MCH 30 pg (28-32) 11/02/21 04:17 MCHC 34 % (32-34) 11/02/21 04:17 RDW 13.1 % (13.2-15.2) L 11/02/21 04:17 Plt Count 265 K/mm3 (140-440) 11/02/21 04:17 Lymph % (Auto) 15.1 % (13.4-35.0) 11/02/21 04:17 [place] % (Auto) 11.1 % (0.0-7.3) H 11/02/21 04:17 Eos % (Auto) 1.7 % (0.0-4.3) 11/02/21 04:17 Baso % (Auto) 0.4 % (0.0-1.8) 11/02/21 04:17 Lymph # (Auto) 1.4 K/mm3 (1.2-5.4) 11/02/21 04:17 [place] # (Auto) 1.0 K/mm3 (0.0-0.8) H 11/02/21 04:17 Eos # (Auto) 0.2 K/mm3 (0.0-0.4) 11/02/21 04:17 Baso # (Auto) 0.0 K/mm3 (0.0-0.1) 11/02/21 04:17 Add Manual Diff Complete 10/24/21 17:17 Total Counted 100 10/24/21 17:17 Seg Neutrophils % 71.7 % (40.0-70.0) H 11/02/21 04:17 Seg Neuts % (Manual) 82.0 % (40.0-70.0) H 10/24/21 17:17 Band Neutrophils % 6.0 % 10/24/21 17:17 Lymphocytes % (Manual) 5.0 % (13.4-35.0) L 10/24/21 17:17 Reactive Lymphs % (Man) 0 % 10/24/21 17:17 Monocytes % (Manual) 6.0 % (0.0-7.3) 10/24/21 17:17 Eosinophils % (Manual) 0 % (0.0-4.3) 10/24/21 17:17 Basophils % (Manual) 0 % (0.0-1.8) 10/24/21 17:17 Metamyelocytes % 0 % 10/24/21 17:17 Myelocytes % 1.0 % 10/24/21 17:17 Promyelocytes % 0 % 10/24/21 17:17 Blast Cells % 0 % 10/24/21 17:17 Nucleated RBC % Not Reportable 10/24/21 17:17 Seg Neutrophils # 6.5 K/mm3 (1.8-7.7) 11/02/21 04:17 Seg Neutrophils # Man 16.8 K/mm3 (1.8-7.7) H 10/24/21 17:17 Band Neutrophils # 1.2 K/mm3 10/24/21 17:17 Lymphocytes # (Manual) 1.0 K/mm3 (1.2-5.4) L 10/24/21 17:17 Abs React Lymphs (Man) 0.0 K/mm3 10/24/21 17:17 Monocytes # (Manual) 1.2 K/mm3 (0.0-0.8) H 10/24/21 17:17 Eosinophils # (Manual) 0.0 K/mm3 (0.0-0.4) 10/24/21 17:17 Basophils # (Manual) 0.0 K/mm3 (0.0-0.1) 10/24/21 17:17 Metamyelocytes # 0.0 K/mm3 10/24/21 17:17 Myelocytes # 0.2 K/mm3 10/24/21 17:17 Promyelocytes # 0.0 K/mm3 10/24/21 17:17 Blast Cells # 0.0 K/mm3 10/24/21 17:17 WBC Morphology Not Reportable 10/24/21 17:17 Hypersegmented Neuts Not Reportable 10/24/21 17:17 Hyposegmented Neuts Not Reportable 10/24/21 17:17 Hypogranular Neuts Not Reportable 10/24/21 17:17 Smudge Cells Not Reportable 10/24/21 17:17 Toxic Granulation Not Reportable 10/24/21 17:17 Toxic Vacuolation Not Reportable 10/24/21 17:17 Dohle Bodies Not Reportable 10/24/21 17:17 Pelger-Huet Anomaly Not Reportable 10/24/21 17:17 Edgardo Rods Not Reportable 10/24/21 17:17 Platelet Estimate Consistent w auto 10/24/21 17:17 Clumped Platelets Not Reportable 10/24/21 17:17 Plt Clumps, EDTA Not Reportable 10/24/21 17:17 Large Platelets Not Reportable 10/24/21 17:17 Giant Platelets Not Reportable 10/24/21 17:17 Platelet Satelliting Not Reportable 10/24/21 17:17 Plt Morphology Comment Not Reportable 10/24/21 17:17 RBC Morphology Normal 10/24/21 17:17 Dimorphic RBCs Not Reportable 10/24/21 17:17 Polychromasia Not Reportable 10/24/21 17:17 Hypochromasia Not Reportable 10/24/21 17:17 Poikilocytosis Not Reportable 10/24/21 17:17 Anisocytosis Not Reportable 10/24/21 17:17 Microcytosis Not Reportable 10/24/21 17:17 Macrocytosis Not Reportable 10/24/21 17:17 Spherocytes Not Reportable 10/24/21 17:17 Pappenheimer Bodies Not Reportable 10/24/21 17:17 Sickle Cells Not Reportable 10/24/21 17:17 Target Cells Not Reportable 10/24/21 17:17 Tear Drop Cells Not Reportable 10/24/21 17:17 Ovalocytes Not Reportable 10/24/21 17:17 Helmet Cells Not Reportable 10/24/21 17:17 Sheffield-Mcallister Bodies Not Reportable 10/24/21 17:17 [place] Rings Not Reportable 10/24/21 17:17 Friedheim Cells Not Reportable 10/24/21 17:17 Bite Cells Not Reportable 10/24/21 17:17 Crenated Cell Not Reportable 10/24/21 17:17 Elliptocytes Not Reportable 10/24/21 17:17 Acanthocytes (Spur) Not Reportable 10/24/21 17:17 Rouleaux Not Reportable 10/24/21 17:17 Hemoglobin C Crystals Not Reportable 10/24/21 17:17 Schistocytes Not Reportable 10/24/21 17:17 Malaria parasites Not Reportable 10/24/21 17:17 ESR 56 mm/Hr (0-20) 10/26/21 04:50 Zelalem Bodies Not Reportable 10/24/21 17:17 Hem Pathologist Commnt No 10/24/21 17:17 Sodium 139 mmol/L (137-145) 11/02/21 04:17 Potassium 3.6 mmol/L (3.6-5.0) 11/02/21 04:17 Chloride 102.4 mmol/L (98-107) 11/02/21 04:17 Carbon Dioxide 24 mmol/L (22-30) 11/02/21 04:17 Anion Gap 16 mmol/L 11/02/21 04:17 BUN 13 mg/dL (9-20) 11/02/21 04:17 Creatinine 0.9 mg/dL (0.8-1.3) 11/02/21 04:17 Estimated GFR > 60 ml/min 11/02/21 04:17 BUN/Creatinine Ratio 14 % 11/02/21 04:17 Glucose 131 mg/dL (75-100) H 11/02/21 04:17 POC Glucose 174 mg/dL (70-105) H 11/04/21 16:47 Lactic Acid 1.50 mmol/L (0.7-2.0) 10/24/21 21:03 Calcium 9.6 mg/dL (8.4-10.2) 11/02/21 04:17 Total Bilirubin 0.30 mg/dL (0.1-1.2) 11/02/21 04:17 AST 13 units/L (5-40) 11/02/21 04:17 ALT 9 units/L (7-56) 11/02/21 04:17 Alkaline Phosphatase 60 units/L (35-129) 11/02/21 04:17 Troponin T < 0.010 ng/mL (0.00-0.029) 10/24/21 17:17 Total Protein 6.8 g/dL (6.3-8.2) 11/02/21 04:17 Albumin 3.0 g/dL (3.9-5) L 11/02/21 04:17 Albumin/Globulin Ratio 0.8 % 11/02/21 04:17 Urine Color Yellow (Yellow) 10/25/21 15:50 Urine Turbidity Slightly-cloudy (Clear) 10/25/21 15:50 Urine pH 5.0 (5.0-7.0) 10/25/21 15:50 Ur Specific Sherrill 1.021 (1.003-1.030) 10/25/21 15:50 Urine Protein 100 mg/dl mg/dL (Negative) 10/25/21 15:50 Urine Glucose (UA) >=500 mg/dL (Negative) 10/25/21 15:50 Urine Ketones Neg mg/dL (Negative) 10/25/21 15:50 Urine Blood Mod (Negative) 10/25/21 15:50 Urine Nitrite Neg (Negative) 10/25/21 15:50 Urine Bilirubin Neg (Negative) 10/25/21 15:50 Urine Urobilinogen < 2.0 mg/dL (<2.0) 10/25/21 15:50 Ur Leukocyte Esterase Neg (Negative) 10/25/21 15:50 Urine WBC (Auto) 3.0 /HPF (0.0-6.0) 10/25/21 15:50 Urine RBC (Auto) 3.0 /HPF (0.0-6.0) 10/25/21 15:50 U Epithel Cells (Auto) 1.0 /HPF (0-13.0) 10/25/21 15:50 Urine Mucus Few /HPF 10/25/21 15:50 Vancomycin Trough 13.3 ug/mL (5.0-20.0) 10/28/21 00:05 Microbiology: Microbiology 10/31/21 Unknown Toe - Right Big Surgical Culture - Final Gonzalez/IV: Voiding Method Urinal Active Medications - Current Medications Current Medications: Generic Name Dose Route Start Last Admin Trade Name Freq PRN Reason Stop Dose Admin Acetaminophen 650 mg 10/25/21 00:19 11/02/21 14:11 Acetaminophen 325 Mg Tab PO 650 mg Q6H PRN Administration Pain MILD(1-3)/Fever >100.5/ANDRE Dextrose 0 ml 10/25/21 00:19 11/03/21 08:28 Dextrose 50% In Water (25gm) 50 Ml Syringe IV 25 ml Q30MIN PRN Administration Hypoglycemia Protocol Heparin Sodium (Porcine) 5,000 unit 10/29/21 22:00 11/04/21 09:17 Heparin 5,000 Unit/1 Ml Vial SUB-Q 5,000 unit Q12HR IAM Administration Cefazolin Sodium 2 gm/ Sodium 100 mls @ 200 mls/hr 10/31/21 14:00 11/04/21 15:02 Chloride IV 200 mls/hr Q8HR IAM Administration Protocol Dextrose/Sodium Chloride 1,000 mls @ 50 mls/hr 11/03/21 09:00 11/03/21 09:08 D5ns IV 50 mls/hr DIRECT IAM Administration Insulin Glargine 36 units 10/29/21 22:00 11/03/21 23:06 Insulin Glargine 100 Units/Ml SUB-Q 36 units QHS IAM Administration Insulin Human Lispro 0 unit 10/25/21 07:30 11/04/21 17:08 Insulin Lispro 100 Unit/Ml SUB-Q 3 unit ACHS IAM Administration Protocol Losartan Potassium 25 mg 10/30/21 10:00 11/04/21 09:17 Losartan 25 Mg Tab PO 25 mg QDAY IAM Administration Magnesium Hydroxide 30 ml 10/25/21 00:19 Magnesium Hydroxide (Mom) Oral Liqd Udc PO Q4H PRN Constipation Metformin HCl 500 mg 10/30/21 17:00 11/04/21 17:07 Metformin 500 Mg Tab PO 500 mg BIDDIAB IAM Administration Morphine Sulfate 2 mg 10/25/21 00:19 Morphine 2 Mg/1 Ml Inj IV Q4H PRN Pain, Moderate (4-6) Morphine Sulfate 4 mg 10/25/21 00:19 Morphine 4 Mg/1 Ml Inj IV Q4H PRN Pain , Severe (7-10) Ondansetron HCl 4 mg 10/25/21 00:19 Ondansetron 4 Mg/2 Ml Inj IV Q8H PRN Nausea And Vomiting Sodium Chloride 10 ml 10/25/21 10:00 11/04/21 09:17 Sodium Chloride 0.9% 10 Ml Flush Syringe IV 10 ml BID IAM Administration Sodium Chloride 10 ml 10/25/21 00:19 Sodium Chloride 0.9% 10 Ml Flush Syringe IV PRN PRN LINE FLUSH Sotalol HCl 120 mg 10/29/21 22:00 11/04/21 09:16 Sotalol 80 Mg Tab PO 120 mg Q12HR IAM Administration Nutrition/Malnutrition Assess - Dietary Evaluation Nutrition/Malnutrition Findings: Nutrition Notes Start: 10/25/21 08:28 Freq: Status: Active Protocol: Document 10/30/21 18:27 PATTY (Rec: 10/30/21 18:49 PATTY [id number]) Nutrition Notes Initial or Follow up Assessment Current Diagnosis Coronary Artery Disease, Diabetes,Sepsis,Hypertension Other Pertinent Diagnosis R-Great Toe Osteomyelitis, Bacteremia, PVD. Current Diet Cardiac/Consistent Carbohydrates Diet (since B ). Labs/Tests 10/29: Glu 121. Pertinent Medications 10/30: Lantus 36U, Humalog 3U, nutritionally unremarkable. 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 Pt's PO intake of meals has been Good (75-100%) and well tolerated, according to ADL notes. Pt is on Room Air, O2 saturation @ 98%, according to Physical Assessment History notes. Pt still in critical condition , not a candidate for Nutrition Education at the time, will assess feasibility on F/U. Percent of energy/protein needs met: Prescribed Cardiac/Consistent Carbohydrates Diet provides for energy/protein needs (1, 977 Kcal/86 g) during LOS. Burn Absent Trauma Absent GI Symptoms None Food Allergy No Skin Integrity/Comment Assessment WNL. Current % PO Good (75-100%) Minimum of two criteria No Fluid Accumulation N/A Reduced Collar Packer Strength N/A (non-severe) Protein-Calorie Malnutrition N\A #1 Nutrition Diagnosis No nutrition diagnosis at this time Is patient on ventilator? No Is Patient Ambulatory and/or Out of Bed Yes REE-(Boyd-St. Jeor-ambulatory/OOB) [ 3.441 NUTR.[id number]] Calculation Used for Recommendations Gui Weiner Additional Notes Protein: 1-1.2 g/Kg ABW; 80-96 g/day. Fluids: 1 ml/Kcal, or as per MD. Nutrition Intervention Change Diet Order: Continue Cardiac/Consistent Carbohydrates Diet. Follow-Up By: 11/06/21 Additional Comments Nutrition education will be provided at F/U, if feasible. Continue monitoring food tolerance, %PO intake of meals , and BM.
[2021-11-04] MEDS: D5W/0.9% NACL 1,000 ML IV SCH (22:44)
[2021-11-04] MEDS: INSULIN GLARGINE 100 UNITS/ML SUB-Q SCH (22:45)
[2021-11-05] MEDS: INSULIN LISPRO 100 UNIT/ML SUB-Q SCH ×2 (08:14→13:23)
[2021-11-05] MEDS: LOSARTAN 25 MG TAB PO SCH (09:15)
[2021-11-05] MEDS: metFORMIN 500 MG TAB PO SCH (09:15)
[2021-11-05] MEDS: HEPARIN 5,000 UNIT/1 ML VIAL SUB-Q SCH (09:17)
[2021-11-05 13:08] VITALS: BP 156/73
--- NOTE | 2021-11-05 13:12 | Discharge Summary ---
Providers - Providers Date of Admission: 10/25/21 00:22 Attending physician: CYNTHIA MORALES 10/25/21 00:19 Consult to Physician [CONS] Routine Comment: Consulting Provider: BLANE HUYNH Physician Instructions: Reason For Exam: Right foot osteomyelitis- right big toe 10/25/21 00:22 Consult to Dietitian/Nutrition [CONS] Routine Physician Instructions: Reason For Exam: Reason for Consult: Diet education Consult to Physician [CONS] Routine Comment: Consulting Provider: ROSE BRADEN Physician Instructions: Reason For Exam: Right Big toe cellulitis/osteomyelitis 10/30/21 09:26 Physical Therapy Evaluation and Treat [CONS] Stat Comment: Eval and Treat Reason For Exam: Physical Therapy 10/31/21 08:53 Consult to Physician [CONS] Routine Comment: Consulting Provider: SOPHIA CARVAJAL Physician Instructions: Reason For Exam: Rt foot osteomyelitis, 11/04/21 10:45 Consult to Case Management [CONS] Routine Services Needed at Discharge: Home Health Services Notified:: CM Additional Physician Instructions: Severo Mena MD [facility] ([facility]) M: [phone] O: [phone] F: [phone] Outpatient parenteral antibiotic therapy orders Diagnosis: MSSA bacteremia Antibiotic administration: Ancef 2 g every 8 hours until 12/09/2021 Line: PICC line Lab monitoring: CBC with differential, CMP, once per week preferably on Wednesday or Wednesday For critical labs, call office: Severo Mena 11/04/21 13:15 Consult to PICC Line RN [CONS] Routine Reason For Exam: long term care phlebotomist abx Type Line:: PICC Primary care physician: BLANE HUYNH Hospitalization Condition: Stable Procedures: MRI lower extremity: Osteomyelitis present. Hospital course: 66-year-old male presenting to ED for evaluation of right toe due to suspected infection. Patient seen and evaluated in the emergency department. All lab and imaging studies reviewed. Patient found to have right great toe cellulitis with suspected osteomyelitis. Patient admitted to medical floor and treated with IV antibiotic therapy. X-ray of right foot revealed clinical findings consistent with osteomyelitis. Patient underwent MRI of right lower extremity and was found to have osteomyelitis. Infectious disease service consulted. Patient initiated on IV antibiotic therapy. Patient underwent PICC line placement for prolonged antibiotic course. Patient convalesced well during hospital course. Patient seen and evaluated prior to discharge. Patient medically optimized on day of discharge. Case management consulted for arrangement of IV antibiotic therapy. Patient medically optimized and subsequent discharged home and instructed to follow-up with primary care physician in 3 to 5 days and to follow-up with infectious disease service as instructed. 35 minutes educated patient discharge and coordination of care. Disposition: 01 HOME / SELF CARE / HOMELESS - Discharge Diagnoses (1) Sepsis Status: Acute Qualifiers: Sepsis type: sepsis due to unspecified organism (2) Osteomyelitis of foot, right, acute Status: Acute (3) HTN (hypertension) Status: Chronic Qualifiers: Hypertension type: primary hypertension Qualified Code(s): I10 - Essential (primary) hypertension (4) DVT prophylaxis Status: Acute (5) Advance care planning Status: Acute (6) Preventative health care Status: Acute Core Measure Documentation - Palliative Care Palliative Care/ Comfort Measures: Not Applicable Exam - Constitutional Vitals: Temp Pulse Resp BP Pulse Ox 97.8 F 56 L 18 156/73 97 11/05/21 12:01 11/05/21 12:01 11/05/21 12:01 11/05/21 12:01 11/05/21 12:01 General appearance: Present: no acute distress - EENT Eyes: Present: PERRL ENT: hearing intact, clear oral mucosa - Neck Neck: Present: supple, normal ROM - Respiratory Respiratory effort: normal Respiratory: bilateral: CTA - Cardiovascular Heart Sounds: Present: S1 & S2. Absent: rub, click - Extremities Extremities: pulses symmetrical, No edema Peripheral Pulses: within normal limits - Abdominal General gastrointestinal: Present: soft, non-tender, non-distended, normal bowel sounds Male genitourinary: Present: normal - Integumentary Integumentary: Present: clear, warm, dry - Musculoskeletal Musculoskeletal: gait normal, strength equal bilaterally - Psychiatric Psychiatric: appropriate mood/affect, intact judgment & insight - Neurologic Neurologic: CNII-XII intact, moves all extremities Plan Activity: advance as tolerated Weight Bearing Status: Weight Bear as Tolerated Diet: diabetic Special Instructions: record daily weights, record daily BP diary, record blood sugar diary Follow up with: BLANE HUYNH DPM [Primary Care Provider] - 7 Days
== END 2021-11-05 16:24 | disposition home or self-care (01) | DRG 853 ==
LOC: ED 16:10 → IMCU 10-25 00:22 → 3A 10-26 05:37
PROVIDERS: ADMIT Internal Medicine Geriatric Medicine; ATTEND Internal Medicine
PROC: 02HV33Z Insertion of Infusion Device into Superior Vena Cava, Percutaneous Approach (ICD-10-PCS; principal; 2021-10-31)
PROC: 0Y6P0Z1 Detachment at Right 1st Toe, High, Open Approach (ICD-10-PCS; 2021-11-05)
DX: A41.01 Sepsis due to Methicillin susceptible Staphylococcus aureus (principal); N17.0 Acute kidney failure with tubular necrosis; M86.171 Other acute osteomyelitis, right ankle and foot; L03.115 Cellulitis of right lower limb; E11.65 Type 2 diabetes mellitus with hyperglycemia; I10 Essential (primary) hypertension; E11.69 Type 2 diabetes mellitus with other specified complication; I25.10 Atherosclerotic heart disease of native coronary artery without angina pectoris; E11.51 Type 2 diabetes mellitus with diabetic peripheral angiopathy without gangrene; I48.91 Unspecified atrial fibrillation
CPT/HCPCS: 36415; 71045; 80048; 80053; 80202; 81001; 82140; 82962; 84484; 85025; 85652; 87040; 87075; 87076; 87116; 87186; 88302; 88305; 88311; 93306; 93312; 93320; 93325; 93925; G0378; J3490; Q9967; C8929; J0295; J0690; J0696; J1580; J1644; J1815; J2250; J2704; J3370; J7030; J7040; J7042; J7050